=== PATIENT | male | born 1975 | race Caucasian/White ===

== ENCOUNTER → 2020-04-10 17:06 | Outpatient (CLI) | payer MEDICARE, SELFPAY ==
[2020-04-10 18:28] LABS: T4 (Thyroxine) 11.5 ug/dl (5.53-11.0)
[2020-04-10 18:42] LABS: Thyroid Stimulating Hormone 3.49 uIU/mL (0.465-4.68)
== END ==
PROVIDERS: Visit Provider Family Medicine
DX: C73 Malignant neoplasm of thyroid gland (principal)
CPT/HCPCS: 84436; 84443

== ENCOUNTER → 2020-04-26 14:28 | Outpatient (CLI) | payer MEDICARE, SELFPAY ==
--- NOTE | 2020-04-26 14:28 | US_ITS ---
PROCEDURE: US THYROID CLINICAL INDICATION: possible thyroid cance r The the COMPARISON: No exams were available for comparison FINDINGS: Right lobe: 4.2 x 1.9 x 2.4 cm. There is heterogeneous echogenicity. A 5 x 2 mm hypoechoic nodules present in the upper pole peripherally Left lobe: 4.5 x 1.4 x 1.9 cm with heterogeneous echogenicity. There is a spongiform appearing nodule in the mid polar region at 8 x 3 mm. Isthmus: Mildly thickened at 4 mm Additional findings: IMPRESSION: Enlarged thyroid gland with small bilateral nodules which have a low level of suspicion. Dictated b Josue Markham MD 04/26/2020 16:06 Josue Markham MD in [place] 04/26/2020 16:06
== END ==
LOC: RAD 14:28
PROVIDERS: PCP Family Medicine; Visit Provider Family Medicine
DX: E04.9 Nontoxic goiter, unspecified (principal)
CPT/HCPCS: 76536

== ENCOUNTER → 2021-05-23 16:52 | Outpatient (CLI) | payer MEDICARE, SELFPAY ==
[2021-05-23 18:27] LABS: Chol/HDL Ratio 4.8 (1-3.5); Cholesterol 173 mg/dl (140-200); HDL Cholesterol 36 mg/dl (40-60); Triglycerides 212 mg/dl (30-150); VLDL Cholesterol 42 mg/dL (0-40)
[2021-05-23 18:38] LABS: Direct LDL Cholesterol 109.06 mg/dL (100-129)
[2021-05-23 19:01] LABS: Thyroid Stimulating Hormone 3.94 uIU/mL (0.465-4.68)
== END ==
LOC: LAB.DROPOF 16:53
PROVIDERS: Visit Provider Family Medicine
DX: I10 Essential (primary) hypertension (principal); Z79.899 Other long term (current) drug therapy
CPT/HCPCS: 80061; 84443

== ENCOUNTER → 2022-05-07 20:41 | Outpatient (CLI) | payer MEDICARE, SELFPAY | PROVIDERS: PCP Family Medicine; Visit Provider Emergency Medicine | DX: U07.1 COVID-19 (principal) | CPT/HCPCS: C9803; U0003; U0005 ==

== ENCOUNTER → 2022-12-15 13:10 | Outpatient (CLI) | payer OTHER, SELFPAY ==
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
== END ==
PROVIDERS: PCP Family Medicine; Referring Provider Family Medicine; Visit Provider Family Medicine
DX: R60.9 Edema, unspecified (principal)
CPT/HCPCS: 93971

== ENCOUNTER → 2022-12-22 16:56 | Outpatient (CLI) | payer OTHER, SELFPAY ==
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
== END ==
PROVIDERS: PCP Family Medicine; Visit Provider Family Medicine
DX: M54.50 Low back pain, unspecified (principal); M54.16 Radiculopathy, lumbar region
CPT/HCPCS: 72148; 76376

== ENCOUNTER → 2023-03-18 14:09 | Outpatient (POV) | payer MEDICARE, SELFPAY ==
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
[2023-03-18 14:42] VITALS: BP 194/97; PULSE 102; RESP 20; O2SAT 97; BMI 34.4
== END | disposition home or self-care (01) ==
PROVIDERS: Visit Provider Nurse Practitioner Family
DX: M51.16 Intervertebral disc disorders with radiculopathy, lumbar region; M79.604 Pain in right leg; G89.29 Other chronic pain
CPT/HCPCS: 99202; G0463

== ENCOUNTER → 2023-04-16 13:37 | Outpatient (POV) | payer MEDICARE, SELFPAY ==
[2023-04-16 13:45] VITALS: BP 150/96; PULSE 85; RESP 20; BMI 33.2
--- NOTE | 2023-04-16 13:53 | A.OFFVIS_ITS ---
[facility] Pain Management SOAP Note Subjective:: Patient is a pleasant 47-year-old male who presents today for follow-up. We are currently treating the patient for degenerative disc disease of lumbar spine with lumbar radiculopathy symptoms, right leg pain, chronic back pain. Today he rates his pain a 5 out of 10. Patient denies any new trauma or injury. He denies any change in location or type of pain he experiences. From our last visit he was prescribed methocarbamol 750 mg 3 times a day and compounding cream. He does state that he has noticed improvement with this. He states that the muscle relaxer does seem more effective than the Flexeril and that the compounding cream does do better than the Biofreeze. He is requesting refills of his muscle relaxer. At our last visit we did also discuss the possibility of a right transforaminal epidural steroid injection or possibly an intrathecal pain pump trial in the future however he states he still is wanting to hold off with anything to do with needles. Patient is currently managed with [place] 7.5 mg 4 times a day, naproxen 500 mg 3 times a day and alprazolam [address] Clark's office. Patient denies any side effects from this medication. His Lasha is [id number]. Its been reviewed and appropriate. Review of Systems: General: No recent weight changes, no fever, no sleep disturbances Respiratory: No cough, no shortness of air, no recurring pulmonary infections Cardiovascular/peripheral vascular: No chest pain, no palpitations, no edema, no shortness of breath Gastrointestinal: No new onset incontinence, normal bowel movements reported Genitourinary: No new onset incontinence Musculoskeletal: Low back pain, right leg pain Psychiatric: [Normal mood/affect] Neurological: [Denies weakness in extremities], [denies balance issues] Objective:: Physical Exam: General: Alert and oriented x3, no acute distress, pleasant and cooperative Lungs: Respirations even and unlabored, symmetrical chest expansion Eyes: PERRL Musculoskeletal: Flexion and extension of lumbar [spine] somewhat guarded secondary to pain, [antalgic gait noted] Neurological: Speech clear, no gross sensory deficit Assessment:: Degenerative disc disease of lumbar spine with lumbar radiculopathy symptoms, right leg pain, chronic back pain Plan:: I will refill the patient's methocarbamol 750 mg 3 times a day and provide a 3- month supply of this medication. Patient will return to clinic in 3 months for reevaluation of symptoms and plan of care. [facility] Disclaimer: The information contained in this section may have been updated after the patient was seen, as this information can be updated by other users. Medical History (Updated 03/18/23 @ 15:09 by Rosey Cortez APRN) Anxiety Depression HTN (hypertension) Hypothyroidism Social History (Updated 03/18/23 @ 14:45 by Brittany Wan RN) Smoking Status: Never smoker alcohol intake: never substance use type: denies use current occupational status: other Travel in the last 8 weeks: None housing: house
== END | disposition home or self-care (01) ==
PROVIDERS: PCP Family Medicine; Visit Provider Nurse Practitioner Family
DX: M51.16 Intervertebral disc disorders with radiculopathy, lumbar region (principal); M79.604 Pain in right leg; M54.50 Low back pain, unspecified; G89.29 Other chronic pain
CPT/HCPCS: 99212; G0463

== ENCOUNTER → 2023-08-18 17:17 | Outpatient (CLI) | payer MEDICARE, SELFPAY ==
--- NOTE | 2023-08-18 17:23 | XR_ITS ---
PROCEDURE INFORMATION: Exam: XR Chest Exam date and time: 08/18/2023 5:16 PM Age: 48 years old Clinical indication: Cough and shortness of breath and other: Chest pain; Additional info: Dyspnea TECHNIQUE: Imaging protocol: Radiologic exam of the chest. Views: 2 views. COMPARISON: No relevant prior studies available. FINDINGS: Lungs: Lung volumes are mildly diminished. The lungs appear clear. No focal areas of consolidation. Pleural spaces: No pleural effusions. Negative for pneumothorax. Heart/Mediastinum: Cardiac silhouette and pulmonary vasculature are within range of normal. Bones/joints: There is no evidence of acute fracture. There is a minor convex right thoracic scoliosis. IMPRESSION: Negative for an acute cardiopulmonary abnormality.
== END ==
PROVIDERS: PCP Family Medicine; Visit Provider Family Medicine
DX: R06.00 Dyspnea, unspecified (principal)
CPT/HCPCS: 71046

== ENCOUNTER 2023-08-18 17:34 | Emergency (ER) | payer MEDICARE, SELFPAY ==
[2023-08-18 17:34] VITALS: BMI 35.4
[2023-08-18 18:00] VITALS: BP 153/91; PULSE 85; RESP 18; TEMP 36.7; O2SAT 97; BMI 35.4
[2023-08-18] MEDS: IPRATROPIUM/ALBUTEROL 3 ML NEB IH (18:03)
--- NOTE | 2023-08-18 18:05 | ED_ITS ---
Discharge Plan Disposition Patient Disposition: Home, Self-Care Condition: Good Prescriptions Prescriptions: New albuterol sulfate [Ventolin HFA] 90 mcg/actuation HFA aerosol inhaler 2 puff inhalation Q6H PRN (Reason: shortness of breath or wheezing) Qty: 6.7 0RF No Action albuterol sulfate 90 mcg/actuation HFA aerosol inhaler 2 puff inhalation QID PRN (Reason: shortness of breath or wheezing) Qty: 8.5 10RF prednisone 20 mg tablet See Rx Instructions .ROUTE .COMPLEX Qty: 18 0RF Rx Instructions: bid for 6 days, qd x 6 days; levofloxacin 750 mg tablet 750 mg PO DAILY 10 Days Qty: 10 0RF alprazolam 1 mg tablet 0.5 mg PO BID Qty: 60 3RF zolpidem [Ambien CR] 12.5 mg tablet,ext release multiphase 12.5 mg PO HS PRN (Reason: sleep) Qty: 30 5RF Rx Instructions: dose change methocarbamol 750 mg tablet 750 mg PO TID Qty: 90 2RF trazodone 150 mg tablet 150 mg PO HS Qty: 90 3RF hydrocodone-acetaminophen 7.5-325 mg tablet 1 tab PO Q6H PRN (Reason: pain) Qty: 120 0RF escitalopram oxalate 20 mg tablet PO DAILY fluticasone propionate 50 mcg/actuation spray,suspension intranasal levothyroxine 75 mcg tablet 75 mcg PO DAILY Qty: 90 0RF lisinopril 20 mg tablet 20 mg PO DAILY Qty: 90 3RF Trintellix 20 mg tablet 20 mg PO DAILY Qty: 30 10RF Referrals Follow up/Referrals: Caio Clark MD [Primary Care Provider] - See instructions Activity Restrictions/Add. Instructions Additional Instructions/Restrictions: Drink plenty of fluids. Take tylenol or ibuprofen for pain or fever. Take the medications that you were prescribed by your primary care physician today as directed. Use the inhaler as directed. Follow up with your regular doctor. GO TO THE ER FOR ANY WORSENING SYMPTOMS Clinical Impressions Clinical Impression: Acute bronchitis Stand Alone Forms Stand Alone Forms: Work/School Release Instructions Patient Instructions: Acute Bronchitis, DI for Acute Bronchitis Discharge ED Provider: Kaleb Farr [facility] General Stated complaint: diff breathing, HBP Time Seen by Provider: 08/18/23 18:04 History of Present Illness Provider Complaint: he states that he has had chest congestion and a cough for the past 2 to 3 days. He saw his pcp today and was prescribed antibiotics and steroids. He has not started those medications yet. He came in here today to see about getting a breathing treatment because he is having worsening shortness of breath and wheezing. He had a cxr done that was ordered by his pcp before coming here today. Related Data Home Medications Medication Instructions Recorded Confirmed escitalopram oxalate 20 mg tablet mg PO DAILY 07/30/23 08/17/23 fluticasone propionate 50 intranasal 07/30/23 08/17/23 mcg/actuation nasal spray,suspension Previous Rx's Medication Instructions Recorded levothyroxine 75 mcg tablet 75 mcg PO DAILY THYROID #90 tabs 06/19/23 lisinopril 20 mg tablet 20 mg PO DAILY BLOOD PRESSURE #90 06/19/23 tabs vortioxetine 20 mg tablet 20 mg PO DAILY MOOD #30 tabs 06/19/23 (Trintellix) hydrocodone 7.5 mg-acetaminophen 1 tab PO Q6H PRN pain #120 tabs 07/20/23 325 mg tablet albuterol sulfate 90 mcg/actuation 2 puff inhalation QID PRN 08/17/23 aerosol inhaler shortness of breath or wheezing #8.5 grams alprazolam 1 mg tablet 0.5 mg PO BID NERVES #60 tabs 08/17/23 levofloxacin 750 mg tablet 750 mg PO DAILY 10 days #10 tabs 08/17/23 methocarbamol 750 mg tablet 750 mg PO TID #90 tabs 08/17/23 prednisone 20 mg tablet See Rx Instructions .Route 08/17/23 .COMPLEX #18 tabs trazodone 150 mg tablet 150 mg PO HS #90 tabs 08/17/23 zolpidem 12.5 mg tablet,extended 12.5 mg PO HS PRN sleep #30 tabs 08/17/23 release,multiphase (Ambien CR) albuterol sulfate 90 mcg/actuation 2 puff inhalation Q6H PRN 08/18/23 aerosol inhaler (Ventolin HFA) shortness of breath or wheezing #6.7 grams Allergies Allergy/AdvReac Type Severity Reaction Status Date / Time No Known Allergies Allergy Verified 08/18/23 18:15 PFSH PFS Disclaimer: The information contained in this section may have been updated after the patient was seen, as this information can be updated by other users. Medical History (Updated 08/18/23 @ 18:36 by Kaleb Farr APRN) Anxiety Depression Dyspnea Frequent headaches Hearing loss HTN (hypertension) Perforated tympanic membrane Tinnitus Social History Smoking Status: Never smoker alcohol intake: never substance use type: denies use current occupational status: other Travel in the last 8 weeks: None housing: house ROS Obtained: Yes All systems reviewed & no additional complaints except as documented Constitutional Constitutional: Reports poor appetite Eyes Eyes: Reports system reviewed and no additional complaints, except as documented ENT Ears, Nose, Mouth, and Throat: Reports as per HPI Cardiovascular Cardiovascular: Reports system reviewed and no additional complaints, except as documented and Denies chest pain Respiratory Respiratory: Denies shortness of breath, Reports chest congestion, Reports cough, Denies stridor and Reports wheezing Gastrointestinal Gastrointestingal: Reports system reviewed and no additional complaints, except as documented; Denies abdominal pain, diarrhea or vomiting Musculoskeletal Musculoskeletal: Reports system reviewed and no additional complaints, except as documented and Denies arthralgias Integumentary/Breasts Skin/Breast: Reports system reviewed and no additional complaints, except as documented and Denies rash Neurologic Neurologic: Denies paresthesias Allergic/Immunologic Allergic/Immunologic: Reports wheezing Physical Exam General General appearance: alert and in no apparent distress Head Head exam: atraumatic, normocephalic and normal inspection Eye Eye exam: Present normal appearance, PERRL and EOMI ENT ENT exam: Present normal exam, normal oropharynx, mucous membranes moist, TM's normal bilaterally and normal external ear exam Neck Neck exam: Present normal inspection, full ROM and trachea midline; Absent meningismus or lymphadenopathy Chest Chest inspection: Present normal inspection and symmetric chest wall rise; Absent tenderness Respiratory Respiratory exam: Present normal lung sounds bilaterally; Absent respiratory distress Cardiovascular Cardiovascular exam: Present regular rate and normal rhythm; Absent JVD Abdominal Exam Abdominal exam: Present soft and normal bowel sounds; Absent distention, tenderness or guarding Extremities Exam Extremities exam: Present normal inspection, full ROM and normal capillary refill; Absent calf tenderness Back Exam Back exam: Present normal inspection; Absent tenderness Neurological Exam Neurological exam: Present alert and oriented X3 Psychiatric Psychiatric exam: Present normal affect and normal mood Skin Skin exam: Present warm, dry, intact and normal color Lymphatic Lymphatic Findings: no adenopathy Medical Decision Making Medical Records Medical records reviewed: No I reviewed the patient's medical records. Lasha Inquiry Pt receiving controlled substance: No Orders (Tests/Meds): ED MEDICATIONS Generic Name Dose Route Start Last Admin Trade Name Freq PRN Reason Stop Dose Admin Albuterol/Ipratropium 3 ml 08/18/23 18:02 08/18/23 18:03 Ipratropium/Albuterol 3 Ml Neb 08/18/23 18:03 3 ml ONCE ONE Administration
[2023-08-18 19:18] VITALS: BP 153/91; PULSE 85; RESP 18; TEMP 36.7; O2SAT 97
--- NOTE | 2023-08-18 19:19 | PC.NURSE ---
Provider wanted me to bring pt back earlier due to severity of condition.
== END 2023-08-18 19:18 | disposition home or self-care (01) ==
PROVIDERS: Emergency Provider Nurse Practitioner Family; PCP Family Medicine
DX: R06.02 Shortness of breath (principal); J20.9 Acute bronchitis, unspecified; R09.89 Other specified symptoms and signs involving the circulatory and respiratory systems; R05.9 Cough, unspecified; I10 Essential (primary) hypertension
CPT/HCPCS: 71046; 87635; 99204; 99212; G0463

== ENCOUNTER 2023-10-16 12:24 | Outpatient (CLI) | payer MEDICARE, SELFPAY ==
--- NOTE | 2023-10-16 | CA_ITS ---
APPROVED REPORT Exam: Exercise Treadmill Technologist: Miroslava Beckman, Ht: 6 ft 1 in Wt: 273 lbs BSA: 2.46 m2 HR: 77 bpm BP: 142/94 mmHg Rhythm: NSR, cannot rule out old inferior MT Medical History Medical History: HTN Medications: Lisinopril,,,,, Alprazolam,,,,, Levothyroxine,,,,, Trazadone,,,,, Albuterol,,,,, Ambien,,,,, Methocarbamol,,,,, Escitalopram Oxalate,,,,, TriNTELLIX,,,,, Allergies: No known drug allergies Cardiac Risk Factors: HTN Stress Test Details Test: David HR Resting HR: 87 bpm Max Heart Rate (APMHR): 171 bpm Max HR Achieved: 150 bpm Target HR (85% APMHR): 145 bpm % of APMHR: 88 Recovery HR: 104 bpm HR response to stress: Normal HR response to stress BP Resting BP: 142.0/94 mmHg Max BP: 174/84 mmHg Recovery BP: 152.0/84.0 mmHg BP response to stress: Normal blood pressure response to stress. ECG Resting ECG: NSR, cannot rule out old inferior MT Stress EC.[address] depression Arrhythmia: None Recovery ECG: Return to baseline within 3 minutes of recovery Recovery Arrhythmia: None Clinical Exercise duration: 08:46 min Highest Stage Achieved: Exercise capacity: 10.1 METs Overall Exercise Capacity for Age: Average Stress ECG Conclusion The patient was able to exercise for a total of 8 minutes, 46 seconds. He achieved a total of 10.1 METS. He has average exercise capacity compared to age and sex matched peers. He has normal HR and BP response to exercise. MAX HR: 150 % OF PM: 88% MAX B/P: 174/84 METS: 10.1 Test stopped due to: Dyspnea, fatigue. No symptoms of chest pain. ST changes: 0.[address] depression at peak stress Conclusion: Average exercise capacity. No ECG evidence of ischemia at peak stress. Myoview images are reported separately. Test Summary REST . . . . . . . Standing REST . . . . . . . Sitting REST 04:43 0.0 0.0 87 . 142/ 94 . . Stage 1 01:00 10.0 1.7 102 . . . . Stage 1 02:00 10.0 1.7 105 . . . . Stage 1 03:00 10.0 1.7 108 . 160/ 78 . . Stage 2 01:00 12.0 2.5 120 . . . . Stage 2 02:00 12.0 2.5 126 . . . . Stage 2 03:00 12.0 2.5 128 . 174/ 84 . . Stage 3 01:00 14.0 3.4 138 . . . . Stage 3 02:00 14.0 3.4 144 . . . . Stage 3 02:46 14.0 3.4 149 . . . Stop exercise at 08:46 RECOVERY 01:00 0.0 0.0 133 . . . . RECOVERY 02:00 0.0 0.0 120 . . . . RECOVERY 03:00 0.0 0.0 109 . 170/ 83 . . RECOVERY 04:00 0.0 0.0 109 . 170/ 83 . . RECOVERY 05:00 0.0 0.0 108 . 152/ 84 . . RECOVERY 05:20 0.0 0.0 107 . 152/ 84 . . Electronically signed by : Hue Herrera MD 10/19/2023 11:40:05
--- NOTE | 2023-10-16 12:25 | NM_ITS ---
APPROVED REPORT Exam: Nuclear Stress Test Indication: chest pain..soa..fatigue Patient Location: Outpatient Stress Tech: Miroslava Beckman NE Tech:Corinna Rubalcava DELON RT(R)(N) Ht: 6 ft 0 in Wt: 265 lbs HR: 87 bpm BP: 142/94 mmHg BSA: 2.40 m2 TID: 1.12 History: chest pain..soa..fatigue Procedure: Patient exercised on David protocol 8:46 minutes and sec, resting heart rate 87 bpm, resting blood pressure 142/94 mmHg, with exercise maximum heart rate achived was 150 bpm which is 88 % of the maximum predicted heart rate and blood pressure was 174/84 mmHg. Test was stopped due to soa..fatigue. Patient denied any complaint of chest pain. Patient has Average exercise capacity, achieved 10.1 METs of workload on treadmill, the blood pressure response to exercise was Normal. Cardiac Stress and Resting SPECT Images: Cardiac Stress and Resting SPECT images were obtained using technetium 99m Myoview 32.8 mCi stress and 10.70 mCi at rest. Raw images demonstrate significant diaphragmatic overlap with the inferior cardiac border. This may affect the diagnostic interpretation of the study findings. Resting and stress imaging in supine positions demonstrate medium sized, moderate fixed perfusion defect in the basal to mid inferior LV wall. This is no longer visualized with prone stress imaging. Findings are suggestive of diaphragmatic attenuation. Gated imaging demonstrates normal global and regional LV systolic function. LVEF is calculated at 59%. Conclusion: Diaphragmatic attenuation is present. No definite evidence of fixed or reversible perfusion defects. Gated imaging demonstrates normal global and regional LV systolic function. LVEF is calculated at 59%. Electronically signed by : Hue Herrera MD 10/19/2023 11:41:53
[2023-10-16] MEDS: ISOTOPE MYOVIEW (PER STUDY) 1 DOSE IV (14:30)
[2023-10-16] MEDS: SODIUM CHLORIDE 0.9% 10ML SYR (RAD ONLY) 10 ML IV ×2 (14:30)
== END 2023-10-16 23:59 ==
LOC: RAD 12:25
PROVIDERS: PCP Family Medicine; Visit Provider Family Medicine
DX: R07.9 Chest pain, unspecified (principal); R06.02 Shortness of breath; R53.83 Other fatigue
CPT/HCPCS: 78452; 93017; 93018; A9502

== ENCOUNTER 2024-01-01 07:50 | Outpatient (CLI) | payer MEDICARE, SELFPAY ==
[2024-01-01 18:47] LABS: Basophils # 0.1 K/mm3 (0-0.2); Basophils % 1.2 % (0.1-2.0); Eosinophils # 0.4 K/mm3 (0.0-0.4); Eosinophils % 3.6 % (0.1-12.0); Hematocrit 46.5 % (42.0-52.0); Hemoglobin 15.4 g/dL (14.1-18.0); Lymphocytes # 3.2 K/mm3 (0.7-4.5); Lymphocytes % 32.4 % (10-50); Mean Corpuscular HGB Conc 33.1 g/dL (31.8-35.4); Mean Corpuscular Hemoglobin 32.5 pg (27.0-31.2); Mean Corpuscular Volume 98.2 fl (80-94); Mean Platelet Volume 8.6 fl (7.4-10.4); Monocytes # 0.6 K/mm3 (0.1-1.0); Monocytes % 6.3 % (1.7-9.3); Neutrophils # 5.6 K/mm3 (1.8-7.8); Neutrophils % 56.4 % (37.0-80.0); Platelet Count 345 K/mm3 (142-424); Red Blood Count 4.74 M/mm3 (4.60-6.20); Red Cell Distribution Width 13.5 % (11.5-17.5); White Blood Count 9.8 K/mm3 (4.8-10.8)
[2024-01-01 18:58] LABS: Alanine Aminotransferase 61 U/L (12-78); Albumin Level 4.7 g/dl (3.5-5.0); Albumin/Globulin Ratio 1.7 (1.1-1.8); Alkaline Phosphatase 69 U/L (38-126); Anion Gap 13.4 mEq/L (5-15); Aspartate Amino Transferase 77 U/L (17-59); Bilirubin,Total 0.5 mg/dl (0.2-1.3); Blood Urea Nitrogen 16 mg/dl (9-20); Calcium 9.3 mg/dl (8.4-10.2); Carbon Dioxide 28 mmol/L (22.0-30.0); Chloride 101 mmol/L (98-107); Chol/HDL Ratio 5.8 (1-3.5); Cholesterol 210 mg/dl (140-200); Estimated Glomerular Filt Rate 120 ml/min (>60); GFR (African American) 145 ML/MIN (>60); Globulin 2.7 g/dL (1.3-3.2); Glucose 134 mg/dl (74-100); HDL Cholesterol 36 mg/dl (40-60); Potassium 4.4 mmoL/L (3.5-5.1); Sodium 138 mmol/L (136-145); Total Protein,Serum 7.4 g/dl (6.3-8.2); Triglycerides 264 mg/dl (30-150); VLDL Cholesterol 53 mg/dL (0-40)
[2024-01-01 19:09] LABS: Direct LDL Cholesterol 125.15 mg/dL (100-129)
[2024-01-01 19:14] LABS: 25-OH Vitamin D, Total 30.5 ng/mL (30-100)
[2024-01-01 19:29] LABS: Thyroid Stimulating Hormone 3.75 uIU/mL (0.465-4.68)
[2024-01-01 19:48] LABS: Vitamin B12 541 pg/mL (239-931)
[2024-01-01 20:04] LABS: Hemoglobin A1C 5.3 % (4.0-6.0)
[2024-01-01 20:05] LABS: Iron 76 ug/dL (49-181)
[2024-01-01 20:09] LABS: Total Iron Binding Capacity 345 ug/dL (261-462)
[2024-01-01 21:56] LABS: Folate 7.01 ng/mL
[2024-01-09 17:09] LABS: Testosterone, Total, LC/MS 141 ng/dL (.)
== END 2024-01-01 23:59 | disposition home or self-care (01) ==
LOC: LAB.DROPOF 01-03 07:51
PROVIDERS: PCP Nurse Practitioner Family; Visit Provider Nurse Practitioner Family
DX: E07.9 Disorder of thyroid, unspecified (principal); R53.83 Other fatigue; E55.9 Vitamin D deficiency, unspecified; G89.21 Chronic pain due to trauma; E11.9 Type 2 diabetes mellitus without complications; E78.5 Hyperlipidemia, unspecified; Z12.5 Encounter for screening for malignant neoplasm of prostate; R74.01 Elevation of levels of liver transaminase levels
CPT/HCPCS: 80053; 80061; 82306; 82607; 82746; 83036; 83540; 83550; 84403; 84443; 85025; G0103

== ENCOUNTER 2024-04-05 08:33 | Day surgery (SDC) | payer MEDICARE, SELFPAY ==
[2024-04-01 13:20] VITALS: BMI 35.1
[2024-04-05] VITALS (7 sets, daily range): BP systolic 91–153; BP diastolic 70–92; PULSE 79–95; RESP 12–18; TEMP 36.6; O2SAT 90–98; BMI 36.1
--- NOTE | 2024-04-05 08:57 | EXP.ANES.CKL ---
[facility] Disclaimer: The information contained in this section may have been updated after the patient was seen, as this information can be updated by other users. Medical History SNHL (sensorineural hearing loss) mild high frequency SNHL > 2KHZ bilaterally Dyspnea Perforated tympanic membrane Frequent headaches Tinnitus Hearing loss Anxiety HTN (hypertension) Depression Surgical History No history of previous surgery Family History Other Cancer Coronary artery disease Thyroid disorder Social History (Updated 04/05/24 @ 08:44 by Jania Jo RN) Smoking Status: Never smoker alcohol intake: never substance use type: denies use current occupational status: other Travel in the last 8 weeks: None housing: house [facility] Anesthesia Checklist Patient Identification Patient Identification: Arm Band and Verbal (Name & ) Structural Data Admitted From: Home Planned Operative Procedure/s: Colonoscopy Consent for Planned Operative Procedure(s) Verified: Yes Verified Documents: Surgical Consent and History and Physical Chart Verification Results Verified: CBC, BMP and Chest Xray Additional verifications Patient : No Anesthesia Reactions: No Cardiovascular Assessment Heart Sounds: S1 & S2 Pulse Rhythm: Irregular Peripheral Edema: No Airway Assessment Mallampati Score:: Class II C-Spine Mobility Assessed: Yes (FROM) TMJ Mobility Assessed: Yes Dentition: Good Dentition (Nothing loose per pt.) Neurological Assessment Level of Consciousness: Awake, Alert, Appropriate and Follows Commands Hx Seizures: No Numbness or tingling in extremities: No Anesthesia Plan Anesthesia Risk discussed: Yes ASA Class: III Anesthesia Type: MAC
--- NOTE | 2024-04-05 08:57 | [facility]H.SCOPE ---
Procedure: Date: 04/05/24 Patient Date of :: 1975 Procedure Performed:: Colonoscopy with polypectomy Indications:: Screening Performing Provider:: Kahlil Stephens MD Referring Provider:: . Sedation:: Monitored anesthesia care Procedure:: After informed consent was obtained the patient was taken to the endoscopy suite. Sedation ensued after the patient was transferred to the left lateral decubitus position. Pulse, blood pressure, and oxygen saturation were monitored throughout the procedure. Digital rectal exam revealed no significant abnormality. The colonoscope was placed in position. The entire colon was evaluated. The colonoscope was carefully removed and the patient was transferred to recovery in stable condition. Please see findings and specimens below for detail. Findings:: Bowel preparation moderate to poor Mild hemorrhoidal cushions Significant spasticity/lack of relaxation Moderate tortuosity Polyps (see specimens) Specimens:: Polyp at 40 cm (cold snare) Polyp at 18 cm (cold snare) Recommendations:: Timing of repeat colonoscopy is pending pathology will likely be between 1-2 years with extended/alternate bowel preparation. Complications:: No immediate Estimated blood obtained (mL): 1 Colonoscopy Component Colonoscopy Component Was a colonoscopy performed during today's procedure?: Yes Recommended follow up colonoscopy of at least 10 years?: No If no, follow up colonoscopy recommended in ___ years?: (See above) Reason for not recommending >/= 10 yr follow-up interval?: (See above)
[2024-04-05] MEDS: LACTATED RINGERS 1000ML 1,000 ML 25 ML IV (09:06)
[2024-04-05 10:55] LABS: C-Reactive Protein 2.9 mg/L (0-4)
[2024-04-05 12:32] LABS: Erythrocyte Sedimentation Rate 11 mm/hr (0-15)
[2024-05-09 14:55] LABS: Rheumatoid Factor IGA < 7 U (<7); Rheumatoid Factor IGM < 7 U (<7)
== END 2024-04-05 10:20 | disposition home or self-care (01) ==
PROVIDERS: PCP Family Medicine; Visit Provider Surgery
PROC: 0DJD8ZZ Inspection of Lower Intestinal Tract, Via Natural or Artificial Opening Endoscopic (ICD-10-PCS; CPT 45378; principal; 2024-04-05 09:30)
DX: M15.4 Erosive (osteo)arthritis (principal); Z12.11 Encounter for screening for malignant neoplasm of colon; K64.9 Unspecified hemorrhoids; K63.5 Polyp of colon
CPT/HCPCS: 45385; 85651; 86140; 86431; 88305; J2704; J7120

== ENCOUNTER 2024-04-29 16:18 | Outpatient (CLI) | payer MEDICARE, SELFPAY | END 2024-04-29 23:59 | disposition home or self-care (01) | LOC: LAB.DROPOF 04-30 09:19 | PROVIDERS: PCP Family Medicine; Visit Provider Family Medicine | DX: M54.9 Dorsalgia, unspecified (principal) | CPT/HCPCS: 87086 ==

== ENCOUNTER 2024-07-05 18:28 | Emergency (ER) | payer MEDICARE, SELFPAY ==
[2024-07-05 18:55] VITALS: BP 129/89; PULSE 87; RESP 21; TEMP 36.8; O2SAT 97; BMI 36.8
[2024-07-05 19:13] LABS: UTC Influenza A Antigen Negative (Negative); UTC Strep Screen (Rapid) Negative (Negative)
[2024-07-05 19:14] LABS: UTC Influenza B Antigen Negative (Negative)
--- NOTE | 2024-07-05 19:17 | EXP.UTC ---
Discharge Plan Disposition Patient Disposition: Home, Self-Care Condition: Good Prescriptions Prescriptions: New azithromycin [Zithromax] 250 mg tablet 250 mg PO UD DOSE PK Qty: 6 0RF Rx Instructions: Take two (2) tablets today, then one (1) tablet days #2 thru #5 benzonatate 100 mg capsule 100 mg PO TIDP PRN (Reason: Cough) Qty: 30 0RF methylprednisolone 4 mg Tablets,Dose Pack 4 mg PO DIRECTED 6 Days Qty: 21 0RF Rx Instructions: Take 1 pack as directed for 6 days No Action alprazolam 1 mg tablet 1 mg PO BID Patient Comments: TAKE 1 TABLET BY MOUTH TWICE DAILY FOR NERVES lisinopril 20 mg tablet 20 mg PO DAILY Patient Comments: TAKE 1 TABLET BY MOUTH ONCE DAILY FOR BLOOD PRESSURE hydrocodone-acetaminophen 7.5-325 mg tablet 1 tab PO Q8HP PRN (Reason: Pain) Patient Comments: TAKE 1 TABLET BY MOUTH EVERY 8 HOURS NEEDED FOR PAIN. naproxen 500 mg tablet 500 mg PO BID Patient Comments: TAKE ONE TABLET BY MOUTH TWICE DAILY amlodipine-benazepril 10-20 mg capsule 1 cap PO DAILY Patient Comments: TAKE 1 CAPSULE BY MOUTH ONCE DAILY. zolpidem 12.5 mg tablet,ext release multiphase 12.5 mg PO HS Patient Comments: TAKE 1 TABLET BY MOUTH AT BEDTIME NIGHTLY NEEDED FOR SLEEP testosterone 1.62 % (40.5 mg/2.5 gram) gel in packet 1 packet topical DAILY Patient Comments: APPLY 1 PACKET (40.5MG) OVER MAX AREA OF EACH UPPER ARM AND SHOULDER. (2 PACKETS TOTAL/DAY) Referrals Follow up/Referrals: Caio Clark MD [Primary Care Provider] - See instructions Activity Restrictions/Add. Instructions Additional Instructions/Restrictions: Drink plenty of fluids. Take tylenol or ibuprofen for pain or fever. Take the medications as directed. Follow up with your regular doctor. GO TO THE ER FOR ANY WORSENING SYMPTOMS Clinical Impressions Clinical Impression: Sinusitis, Bronchitis, Acute viral syndrome Stand Alone Forms Stand Alone Forms: Work/School Release Instructions Patient Instructions: DI for Sinusitis, DI for Viral Syndrome Print Language Print Language: Japanese Discharge ED Provider: Kaleb Farr [facility] General Stated complaint: Fever,sore throat,congestion Mode of Arrival: Ambulatory Source of Information: Patient Limitations: No Limitations Time Seen by Provider: 07/05/24 19:08 Description of Symptoms (Recalled from Triage Doc. by RN): PATIENT C/O FEVER, SORE THROAT AND COUGH X 4 DAYS HEENT Symptoms (Recalled from RN notes): Yes Resp Symptoms (Recalled from RN notes): Yes Skin Symptoms (Recalled from RN notes): No MS Symptoms (Recalled from RN notes): No Functional Status (Recalled from RN notes): WNL History of Present Illness Provider Complaint: He states that for the past 2 days he has had sinus and chest congestion. He has had fever, chills, and malaise also. Related Data Home Medications ?Medication ?Instructions ?Recorded ?Confirmed alprazolam 1 mg tablet 1 mg PO BID 07/05/24 07/05/24 amlodipine 10 mg-benazepril 20 mg 1 cap PO DAILY 07/05/24 07/05/24 capsule hydrocodone 7.5 mg-acetaminophen 1 tab PO Q8HP PRN Pain 07/05/24 07/05/24 325 mg tablet lisinopril 20 mg tablet 20 mg PO DAILY 07/05/24 07/05/24 naproxen 500 mg tablet 500 mg PO BID 07/05/24 07/05/24 testosterone 1.62 % (40.5 mg/2.5 1 packet topical DAILY 07/05/24 07/05/24 gram) transdermal gel packet zolpidem 12.5 mg tablet,extended 12.5 mg PO HS 07/05/24 07/05/24 release,multiphase Previous Rx's ?Medication ?Instructions ?Recorded azithromycin 250 mg tablet 250 mg PO UD DOSE PK #6 tabs 07/05/24 (Zithromax) benzonatate 100 mg capsule 100 mg PO TIDP PRN Cough #30 caps 07/05/24 methylprednisolone 4 mg tablets in 4 mg PO DIRECTED 6 days #21 tabs 07/05/24 a dose pack Allergies Allergy/AdvReac Type Severity Reaction Status Date / Time No Known Allergies Allergy Verified 06/27/24 15:27 Worker's Comp Is this a Worker's Comp case?: No [facility] Disclaimer: The information contained in this section may have been updated after the patient was seen, as this information can be updated by other users. Medical History SNHL (sensorineural hearing loss) mild high frequency SNHL > 2KHZ bilaterally Dyspnea Perforated tympanic membrane Frequent headaches Tinnitus Hearing loss Anxiety HTN (hypertension) Depression Surgical History History of colonoscopy No history of previous surgery Family History Other Cancer Coronary artery disease Thyroid disorder Social History Smoking Status: Never smoker alcohol intake: never substance use type: denies use current occupational status: other Travel in the last 8 weeks: None housing: house caffeine: Yes ROS Obtained: Yes All systems reviewed & no additional complaints except as documented Constitutional Constitutional: Reports chills and Reports fever(s) Eyes Eyes: Denies eye discharge ENT Ears, Nose, Mouth, and Throat: Reports as per HPI Cardiovascular Cardiovascular: Denies chest pain Respiratory Respiratory: Denies chest congestion and Reports cough Gastrointestinal Gastrointestingal: Reports nausea; Denies abdominal pain, constipation, cramping, diarrhea or vomiting Musculoskeletal Musculoskeletal: Denies arthralgias Integumentary/Breasts Skin/Breast: Denies rash Neurologic Neurologic: Denies paresthesias Physical Exam General General appearance: alert and in no apparent distress Eye Eye exam: Present normal appearance, PERRL and EOMI ENT ENT exam: Present mucous membranes moist and normal external ear exam Expanded ENT Exam External ear exam: Present normal external inspection TM/Canal exam: Bilateral TM: erythema and bulging Nose exam: Absent sinus tenderness Nasal speculum exam: Bilateral: normal Mouth exam: Present normal external inspection; Absent drooling Teeth exam: Present normal inspection Throat exam: Present tonsillar erythema and tonsillomegaly Neck Neck exam: Present normal inspection, full ROM and trachea midline; Absent tenderness, lymphadenopathy or thyromegaly Chest Chest inspection: Present normal inspection and symmetric chest wall rise; Absent tenderness or rash Respiratory Respiratory exam: Present normal lung sounds bilaterally; Absent respiratory distress, wheezes, stridor or accessory muscle use Cardiovascular Cardiovascular exam: Present regular rate, normal rhythm and normal heart sounds Abdominal Exam Abdominal exam: Present soft; Absent distention, tenderness, guarding, rebound or rigidity Extremities Exam Extremities exam: Present normal inspection, full ROM and normal capillary refill; Absent tenderness or calf tenderness Back Exam Back exam: Present normal inspection and full ROM; Absent tenderness Neurological Exam Neurological exam: Present alert and oriented X3 Psychiatric Psychiatric exam: Present normal affect and normal mood Skin Skin exam: Present warm, dry, intact and normal color Lymphatic Lymphatic Findings: no adenopathy Medical Decision Making Medical Records Medical records reviewed: No I reviewed the patient's medical records. Screening: Per USPSTF and CDC recommendations, given the prevalence of disease in our region, it is our hospital?s policy to screen for HIV and viral Hepatitis for all patients aged 18 and over and those with ongoing risk factors. Lasha Inquiry Pt receiving controlled substance: No Vital Signs: 07/05/24 18:55 Temperature 98.3 F Temperature Source Oral Pulse Rate [Right Brachial] 87 Respiratory Rate 21 Blood Pressure [Right Arm] 129/89 Blood Pressure Mean [Right Arm] 102 Blood Pressure Source [Right Arm] Automatic Cuff Blood Pressure Position [Right Arm] Sitting 02 Sat by Pulse Oximetry 97 Oxygen Delivery Method Room Air Lab Data Lab results reviewed: Yes I reviewed the patient's lab results. Lab Results 07/05/24 19:01: Influenza Type A Ag Negative, Influenza Type B Ag Negative, Strep Scn Rapid Clinic Negative Orders (Tests/Meds): ORDERS Category Date Time Status Strep Screen Confirmation Stat Micro 07/05/24 19:01 Received
[2024-07-05 19:25] VITALS: BP 129/89; PULSE 87; RESP 21; TEMP 36.8; O2SAT 97
== END 2024-07-05 19:30 | disposition home or self-care (01) ==
PROVIDERS: Emergency Provider Nurse Practitioner Family; PCP Family Medicine
DX: J01.90 Acute sinusitis, unspecified (principal); J40 Bronchitis, not specified as acute or chronic; B34.9 Viral infection, unspecified
CPT/HCPCS: 87635; 87804; 87880; 99213; G0381

== ENCOUNTER 2024-11-13 21:17 | Emergency (ER) | payer MEDICARE, SELFPAY ==
[2024-11-13 21:23] VITALS: BP 160/108; PULSE 77; RESP 20; TEMP 36.8; O2SAT 94; BMI 34.4
[2024-11-13 21:30] VITALS: BP 160/113; PULSE 103; O2SAT 99
[2024-11-13] MEDS: ONDANSETRON 4MG/2ML VIAL 4 MG IV (21:56)
[2024-11-13] MEDS: LACTATED RINGERS 1000ML 1,000 ML 999 ML IV (21:56)
[2024-11-13 22:05] LABS: Adenovirus F 40/41, stool Not Detected (NotDetected); Astrovirus Not Detected (NotDetected); Campylobacter Not Detected (NotDetected); Cryptosporidium Not Detected (NotDetected); Cyclospora Cayetanesis Not Detected (NotDetected); Entamoeba histolytica Not Detected (NotDetected); Enteroaggregative E coli Not Detected (NotDetected); Enteropathogenic E coli Not Detected (NotDetected); Enterotoxigenic E coli Not Detected (NotDetected); Giardia lamblia Not Detected (NotDetected); Norovirus Not Detected (NotDetected); Plesimonas Shigalloides, PCR Not Detected (NotDetected); Rotavirus A Not Detected (NotDetected); Salmonella, PCR Not Detected (NotDetected); Sapovirus Not Detected (NotDetected); Shiga-like toxin E coli Not Detected (NotDetected); Shigella Enterovasive E coli Not Detected (NotDetected); Vibrio Cholerae Not Detected (NotDetected); Vibrio, PCR Not Detected (NotDetected); Yersinia Entercolitica, PCR Not Detected (NotDetected)
[2024-11-13 22:06] LABS: Albumin Level 5.6 g/dl (3.5-5.0); Chloride 99 mmol/L (98-107); Potassium 3.8 mmoL/L (3.5-5.1); Sodium 140 mmol/L (136-145)
[2024-11-13 22:08] LABS: Blood Urea Nitrogen 12 mg/dl (9-20); Creatinine Clearance Estimated 151 mL/min (50-200); Estimated Glomerular Filt Rate 89 ml/min (>60); GFR (African American) 108 ML/MIN (>60)
[2024-11-13 22:09] LABS: Alanine Aminotransferase 125 U/L (12-78); Albumin/Globulin Ratio 1.3 (1.1-1.8); Alkaline Phosphatase 78 U/L (38-126); Anion Gap 17.8 mEq/L (5-15); Aspartate Amino Transferase 99 U/L (17-59); Bilirubin,Total 1.4 mg/dl (0.2-1.3); Calcium 9.4 mg/dl (8.4-10.2); Carbon Dioxide 27 mmol/L (22.0-30.0); Globulin 4.2 g/dL (1.3-3.2); Glucose 102 mg/dl (74-100); Total Protein,Serum 9.8 g/dl (6.3-8.2)
[2024-11-13 22:10] LABS: Basophils # 0.1 K/mm3 (0-0.2); Basophils % 0.4 % (0.1-2.0); Eosinophils # 0.4 K/mm3 (0.0-0.4); Eosinophils % 2.7 % (0.1-12.0); Hematocrit 51.4 % (42.0-52.0); Lymphocytes # 3.1 K/mm3 (0.7-4.5); Lymphocytes % 19.3 % (10-50); Mean Corpuscular HGB Conc 35.2 g/dL (31.8-35.4); Mean Corpuscular Hemoglobin 31.3 pg (27.0-31.2); Mean Corpuscular Volume 88.9 fl (80-94); Mean Platelet Volume 9.1 fl (7.4-10.4); Monocytes # 1.2 K/mm3 (0.1-1.0); Monocytes % 7.2 % (1.7-9.3); Neutrophils # 11.3 K/mm3 (1.8-7.8); Neutrophils % 69.8 % (37.0-80.0); Platelet Count 392 K/mm3 (142-424); Red Blood Count 5.78 M/mm3 (4.60-6.20); White Blood Count 16.2 K/mm3 (4.8-10.8)
[2024-11-13 22:13] LABS: MANUAL DIFFERENTIAL MANUAL DIFFERENTIAL (MANUAL DIFF)
--- NOTE | 2024-11-13 22:15 | ED_ITS ---
Discharge Plan Disposition Patient Disposition: Home, Self-Care Condition: Good Prescriptions Prescriptions: New ondansetron 4 mg tablet,disintegrating 4 mg PO Q6H PRN (Reason: nausea and vomiting) Qty: 10 0RF No Action alprazolam 1 mg tablet 1 mg PO .qd PRN (Reason: anxiety) Qty: 30 3RF Rx Instructions: dose reduction naproxen 500 mg tablet 500 mg PO BID Qty: 60 2RF Patient Comments: TAKE ONE TABLET BY MOUTH TWICE DAILY testosterone 1.62 % (40.5 mg/2.5 gram) gel in packet 1 packet topical DAILY Qty: 75 5RF eszopiclone [Lunesta] 3 mg tablet 3 mg PO HS Qty: 30 5RF Ozempic 1 mg/dose (4 mg/3 mL) pen injector 1 mg SQ WEEKLY Qty: 3 1RF hydrocodone-acetaminophen 7.5-325 mg tablet 1 tab PO Q6H PRN (Reason: Pain) Qty: 120 0RF testosterone [AndroGel] 20.25 mg/1.25 gram (1.62 %) gel in metered-dose pump 2 pump topical DAILY Qty: 75 5RF Rx Instructions: apply 1 pump amount over max area of EACH upper arm and shoulder amlodipine-benazepril 10-20 mg capsule 1 cap PO DAILY Patient Comments: TAKE 1 CAPSULE BY MOUTH ONCE DAILY. Referrals Follow up/Referrals: Caio Clark MD [Primary Care Provider] - See instructions Activity Restrictions/Add. Instructions Additional Instructions/Restrictions: Call your family doctor to establish care for this visit to the emergency department and schedule follow-up within 48 hours to ensure improvement. If you have any worsening of your condition or any other concerning signs or symptoms, return to the emergency department or your primary care doctor for further evaluation. Clinical Impressions Clinical Impression: Gastroenteritis Instructions Patient Instructions: DI for Diarrhea and Traveler's Diarrhea -- Adult, DI for Diarrhea and Traveler's Diarrhea -- Child, DI for Nausea -- Adult, DI for Nausea -- Child Print Language Print Language: French Discharge ED Provider: Daren Savage General Adult HPI General Chief complaint: Nausea/Vomiting/Diarrhea Stated complaint: vomiting, diarrhea Time Seen by Provider: 11/13/24 21:20 Mode of Arrival: Ambulatory Source of Information: Patient Limitations: No Limitations Description of Symptoms (Recalled from ER Triage Doc. by RN): Pt states he is having liquid frequent diarrhea and vomiting x 2 days History of Present Illness HPI narrative: Please note that above description of symptoms, in this electronic medical record under categorization of recalled from ER triage doctor by RN are reflective of an initial nursing assessment, however, is not reflective of my full history and physical exam that was personally taken and clarified. Consequentially, this preceding description of symptoms, which may include the patient's categorized chief complaint in the EMR, do not reflect my personal clinical impression, and the ultimate description of history of present illness and patient stated complaints should be deferred to this section of the note. Unless stated otherwise or congruent with this section of the note, additional signs, symptoms, or incongruence should be interpreted as inaccurate with my clinical impression. Related Data Home Medications ?Medication ?Instructions ?Recorded ?Confirmed amlodipine 10 mg-benazepril 20 mg 1 cap PO DAILY 07/05/24 11/13/24 capsule Previous Rx's ?Medication ?Instructions ?Recorded alprazolam 1 mg tablet 1 mg PO .qd PRN anxiety #30 tabs 09/28/24 naproxen 500 mg tablet 500 mg PO BID #60 tabs 09/28/24 testosterone 1.62 % (40.5 mg/2.5 1 packet topical DAILY #75 grams 09/28/24 gram) transdermal gel packet testosterone (AndroGel) 2 pump topical DAILY #75 grams 09/29/24 eszopiclone 3 mg tablet (Lunesta) 3 mg PO HS #30 tabs 10/28/24 hydrocodone 7.5 mg-acetaminophen 1 tab PO Q6H PRN Pain #120 tabs 10/28/24 325 mg tablet semaglutide 1 mg/dose (4 mg/3 mL) 1 mg (0.75 mL) SQ WEEKLY #3 mL 10/28/24 subcutaneous pen injector (Ozempic) ondansetron 4 mg disintegrating 4 mg PO Q6H PRN nausea and 11/13/24 tablet vomiting #10 tabs Allergies Allergy/AdvReac Type Severity Reaction Status Date / Time No Known Allergies Allergy Verified 10/28/24 09:17 [facility] Disclaimer: The information contained in this section may have been updated after the patient was seen, as this information can be updated by other users. Medical History SNHL (sensorineural hearing loss) mild high frequency SNHL > 2KHZ bilaterally Dyspnea Perforated tympanic membrane Frequent headaches Tinnitus Hearing loss Anxiety HTN (hypertension) Depression Surgical History History of colonoscopy No history of previous surgery Family History Other Cancer Coronary artery disease Thyroid disorder Social History Smoking Status: Never smoker alcohol intake: never substance use type: denies use current occupational status: other Travel in the last 8 weeks: None housing: house caffeine: Yes Have you lived/traveled outside [place] in past 30 days?: No Contact w/someone who lives/traveled outside [place] past 30 days?: No Exposure to someone with infectious disease in past 14 days?: No Do you have a fever (greater than 100.4 F or 38 C)?: No Have you tested positive for COVID-19: No Exposed to someone with COVID-19 in past 14 days?: No Do you have a sore throat?: No Do you have a cough?: No Do you have any weakness?: No Do you have any diarrhea?: No Are you experiencing any unusual bleeding?: No Do you have any muscle aches/pain?: No Do you have any abdominal pain?: No Are you experiencing loss of taste or smell?: No Other Medical History Have you received the Flu Vaccine for this season: No Have you received the Pneumonia Vaccine: No ROS Obtained: Yes All systems reviewed & no additional complaints except as documented Physical Exam General General appearance: alert Head Head exam: atraumatic and normocephalic Eye Eye exam: Present normal appearance, PERRL and EOMI Neck Neck exam: Present normal inspection, full ROM and trachea midline Respiratory Respiratory exam: Absent respiratory distress, wheezes, stridor, accessory muscle use or prolonged expiratory phase Cardiovascular Cardiovascular exam: Present other (Pulses equal symmetric in upper and lower extremities) Abdominal Exam Abdominal exam: Present soft; Absent distention, tenderness or pulsatile mass Extremities Exam Extremities exam: Absent edema Neurological Exam Neurological exam: Present alert, oriented X3 and CN II-XII intact; Absent motor sensory deficit Skin Skin exam: Present warm and dry; Absent diaphoresis or erythema Medical Decision Making Medical Records Medical records reviewed: Yes I reviewed the patient's medical records. Screening: Per USPSTF and CDC recommendations, given the prevalence of disease in our region, it is our hospital?s policy to screen for HIV and viral Hepatitis for all patients aged 18 and over and those with ongoing risk factors. Lasha Inquiry Pt receiving controlled substance: No Lasha was queried for this patient: No Vital Signs: 11/13/24 21:23 11/13/24 21:30 11/13/24 23:13 Temperature 98.3 F 97.9 F Temperature Source Oral Oral Pulse Rate 103 H 74 Pulse Rate [Right Brachial] 77 Respiratory Rate 20 18 Blood Pressure 160/113 H 126/74 Blood Pressure [Right Arm] 160/108 H Blood Pressure Mean [Right Arm] 125 Blood Pressure Source Automatic Cuff Blood Pressure Source [Right Arm] Automatic Cuff Blood Pressure Position Supine Blood Pressure Position [Right Arm] Sitting 02 Sat by Pulse Oximetry 94 L 99 Oxygen Delivery Method Room Air Room Air Lab Data Lab Results 11/13/24 21:29: WBC 16.2 H, RBC 5.78, Hgb 18.2 H, Hct 51.4, MCV 88.9, MCH 31.3 H , MCHC 35.2, RDW 12.0, Plt Count 392, MPV 9.1, Neut % (Auto) 69.8, Lymph % (Auto) 19.3, [place] % (Auto) 7.2, Eos % (Auto) 2.7, Baso % (Auto) 0.4, Neut # (Auto) 11.3 H, Lymph # (Auto) 3.1, [place] # (Auto) 1.2 H, Eos # (Auto) 0.4, Baso # (Auto) 0.1, Total Counted 100, Neutrophils % (Manual) 64, Lymphocytes % (Manual) 20, Monocytes % (Manual) 9, Eosinophils % (Manual) 7 H, Platelet Estimate Normal, RBC Morphology Normal, Sodium 140, Potassium 3.8, Chloride 99, Carbon Dioxide 27, Anion Gap 17.8 H, BUN 12, Creatinine 0.90, Estimated Creat Clear 151, Estimated GFR 89, Est GFR ( Amer) 108, Glucose 102 H, Calcium 9.4, T otal Bilirubin 1.4 H, AST 99 H, ALT 125 H, Alkaline Phosphatase 78, Total Protein 9.8 H D, Albumin 5.6 H, Globulin 4.2 H, Albumin/Globulin Ratio 1.3, HCV Ab AYANA w/Rflx PCR Qn Negative, HIV Ag/Ab Combo Qual Negative 11/13/24 22:00: Stl Aeromonas (PCR) Not detected, Stl C. cayetanensis PCR Not detected, Stool Rotavirus (PCR) Not detected, Stl Adenov F 40/41 PCR Not detected, Stool Astrovirus (PCR) Not detected, Stool Campylobacter PCR Not detected, Stl C.difficile Tox PCR Detected A, Stool Cryptosporidium PCR Not detected, Stl E.coli Shiga Tox PCR Not detected, Stool E coli O157 PCR Not detected, Stl Enterotoxigenic E PCR Not detected, Stool EPEC (PCR) Not detected, Stool EAEC (PCR) Not detected, Stl E. histolytica PCR Not detected, Stool Giardia Lamblia PCR Not detected, Stool Salmonella PCR Not detected, Stool Sapovirus (PCR) Not detected, Stl P. shigelloides PCR Not detected, Stl Shigella/EIEC PCR Not detected, St Y.enterocolitica PCR Not detected, Stool Vibrio (PCR) Not detected, Stl Vibrio cholerae PCR Not detected, Stl Norovirus GI/GII PCR Not detected 11/13/24 21:29 11/13/24 21:29 Orders (Tests/Meds): ED MEDICATIONS Discontinued Medications Generic Name Dose Route Start Last Admin Trade Name Freq PRN Reason Stop Dose Admin Lactated Ringer's 1,000 mls @ 999 mls/hr 11/13/24 21:49 11/13/24 21:56 Lactated Ringer's 1000 Ml Bag IV 11/13/24 22:49 999 mls/hr .Q1H1M ONE Administration Ondansetron HCl 4 mg 11/13/24 21:49 11/13/24 21:56 Ondansetron 4mg/2ml Vial IV 11/13/24 21:50 4 mg ONCE ONE Administration ORDERS Category Date Time Status CBC w/Auto Diff [Complete Blood Count Auto Diff] Stat Lab 11/13/24 21:29 Completed CMP [Comprehensive Metabolic Panel] Stat Lab 11/13/24 21:29 Completed Diarrhea 6-11 Panel, Cdiff PCR Stat Lab 11/13/24 22:00 Completed HIV Combo Routine Lab 11/13/24 21:29 Completed Hepatitis C Ab Qual. W/ RFX Routine Lab 11/13/24 21:29 Completed Medical Decision Narrative: 49-year-old male presenting with vomiting and diarrheal syndrome. This been going on for 3 to 4 days at this point. Nonbloody, nonbilious vomiting, yellow and runny diarrhea. States that is also pretty malodorous. No abdominal pain, states that he has been unable to tolerate almost any p.o. intake for the last couple of days and just feels worn out. History was obtained via conversation with patient and significant other. On arrival, patient hemodynamically stable, alert, oriented x4, appropriate, GCS 15, moving all extremities spontaneously, pupils equal and reactive to light. Full physical exam performed and significant for well-appearing male no acute distress. He is mildly tachycardic. Normotensive, afebrile, speaking full sentences. Abdomen is soft, nontender, nondistended. No overlying skin changes. Differential includes gastritis, enteritis, gastroenteritis, fluid or diarrhea, infectious, among others. Patient placed on continuous cardiac monitoring and continuous pulse ox with initial blood pressure 160/108, heart rate 77, saturation 98% on room air. Patient was given fluids, Zofran for symptomatic management and correction of underlying abnormalities. Workup independently interpreted and significant for mild leukocytosis 16.2 with neutrophilia. Patient's anion gap mildly elevated at 17.8. LFTs elevated with AST 99, ALT 125, bilirubin mildly elevated at 1.4. CT imaging of the abdomen and pelvis was considered, patient has benign exam, history consistent with gastroenteritis and largely nonactionable labs consistent with acute viral syndrome. On reevaluation, patient states that he is ready to go home and feels a lot better. Asked for Zofran to be sent to the pharmacy. This was sent. Because patient at baseline without signs or symptoms of clinical decompensation, deemed appropriate for discharge. Results were relayed to patient who voiced understanding and were agreeable to outpatient management and follow up. I discussed my clinical impression with patient and answered all questions. At this time, the evidence for any other entities in the differential is insufficient to warrant any further testing or ED observation. This was explained as well. Advisory was given that persistent or worsening symptoms require further evaluation. I confirmed the understanding of this discussion. Equipment Service Associate disclaimer Much of this encounter note is an electronic cardiothoracic anesthesia technician spoken language to printed text. Electronic cardiothoracic anesthesia technician of the spoken language may permit errors. Although I have reviewed the note, some errors may still exist. Critical Care Critical Care Time Critical Care Time: No
[2024-11-13 23:01] LABS: HIV Combo NEGATIVE (Negative)
[2024-11-13 23:09] LABS: Hepatitis C Ab Qual. W/ RFX NEGATIVE (Negative)
[2024-11-13 23:13] VITALS: BP 126/74; PULSE 74; RESP 18; TEMP 36.6; O2SAT 98
--- NOTE | 2024-11-13 23:14 | PC.NURSE ---
IV removed. Catheter tip intact. Bleeding controlled.
[2024-11-13 23:21] LABS: Eosinophils % 7 % (0-3); Lymphocytes % 20 % (10-50); Monocytes % 9 % (2-9); Neutrophils % 64 % (42-76); Total Cells Counted 100
[2024-11-13 23:28] LABS: Platelet Estimate Normal; RBC Morphology Normal
[2024-11-13 23:36] LABS: Hemoglobin 18.2 g/dL (14.1-18.0)
[2024-11-14 01:39] LABS: Clostridium Difficile A/B, PCR Detected (NotDetected)
== END 2024-11-13 23:15 | disposition home or self-care (01) ==
PROVIDERS: Emergency Provider Emergency Medicine; PCP Family Medicine
DX: K52.9 Noninfective gastroenteritis and colitis, unspecified (principal); R11.2 Nausea with vomiting, unspecified
CPT/HCPCS: 80053; 85007; 85025; 85027; 86803; 87389; 87506; 96361; 96374; 99283; J2405; J7120

== ENCOUNTER 2025-03-22 09:37 | Outpatient (CLI) | payer MEDICARE, SELFPAY ==
[2025-03-22 21:30] LABS: Hematocrit 43.7 % (42.0-52.0); Hemoglobin 14.9 g/dL (14.1-18.0); Immature Granulocytes % 0.3 %; Mean Corpuscular HGB Conc 34.1 g/dL (31.8-35.4); Mean Corpuscular Hemoglobin 31.2 pg (27.0-31.2); Mean Corpuscular Volume 91.4 fl (80-94); Nucleated Red Blood Cells % 0 %; Platelet Count 311 K/mm3 (142-424); Red Blood Count 4.78 M/mm3 (4.60-6.20); Red Cell Distribution Width-SD 40.7 fL; White Blood Count 10.1 K/mm3 (4.8-10.8)
[2025-03-22 22:00] LABS: Cholesterol 186 mg/dl (140-200); HDL Cholesterol 37 mg/dl (40-60); Triglycerides 147 mg/dl (30-150)
--- OUTSIDE RECORDS SUMMARY | 2025-03-27 09:50 | XMS_ITS | Clinical Summary ---
Author Organization [facility] [address] Address [address] [place] [address] Care Team Providers Care Compass Operator Name Role Phone Caio Clark MD Primary Care Provider [phone] Allergies No known active allergies Medications No known medications Family History Medical History Relation Name Comments Asthma Brother High Blood Pressure Brother Arthritis Father Depression Father Heart Disease Father Mental Illness Father Arthritis Maternal Grandfather Cancer Maternal Grandfather Diabetes Maternal Grandfather Early Maternal Grandfather Arthritis Maternal Grandmother Cancer Maternal Grandmother Diabetes Maternal Grandmother Heart Disease Maternal Grandmother Arthritis Mother Arthritis Paternal Grandfather Cancer Paternal Grandfather Diabetes Paternal Grandfather Heart Disease Paternal Grandfather Arthritis Paternal Grandmother Cancer Paternal Grandmother Diabetes Paternal Grandmother Relation Name Status Comments Brother Father Maternal Grandfather Maternal Grandmother Mother Paternal Grandfather Paternal Grandmother Social History Tobacco Use Types Packs/Day Years Used Date Smoking Tobacco: Never Smokeless Tobacco: Current Tobacco Cessation:Ready to Q uit: No Alcohol Use Standard Drinks/Week Comments No 0 (1 standard drink = 0.6 oz pur e alcohol) 1-2 beer on weekends Sex and Gender Information Value Date Recorded Sex Assigned at Not on file Legal Sex Male 2:10 PM EDT Gender Identity Not on file Sexual Orientation Not on file Obstetrics History Last Filed Vital Signs Vital Sign Reading Time Taken Comments Blood Pressure 111/73 07/17/2013 4:18 PM EDT Pulse 69 07/17/2013 4:18 PM EDT Temperature 36.7 C (98 F) 07/17/2013 4:18 PM EDT Respiratory Rate 16 07/17/2013 4:18 PM EDT Oxygen Saturation 97% 07/17/2013 4:18 PM EDT Inhaled Oxygen Concentration - - Weight 102.1 kg (225 lb) 07/16/2013 5:06 PM EDT Height 185.4 cm (6' 1 ) 07/16/2013 5:06 PM EDT Body Mass Index 29.69 07/16/2013 5:06 PM EDT Plan of Treatment Health Maintenance Due Date Last Done Comments Annual Wellness Exam 1977 DTaP/TDaP/Td (1 - Tdap) 1993 Hepatitis B Vaccine (1 of 3 - 19+ 3-dose series) 1993 Cologuard 2019 Colon Cancer Screening 2019 Colonoscopy 2019 FIT 2019 Sigmoidoscopy 2019 Virtual Colonography 2019 COVID-19 Vaccine (1 - 2023-2 5 season) 2024 Pneumococcal Vaccine 50+ (1 of 1 - PCV) 2024 Zoster (1 of 2) 2024 Influenza Vaccine (#1) 2025 Meningococcal B Vaccine Aged Out No l onger eligible based on patient's age to complete this topic Insurance [employer] Care Teams Compass Operator Relationship Specialty Start Date End Date Caio Clark MD PCP - General Family Medicine 07/16/13
--- OUTSIDE RECORDS SUMMARY | 2025-03-27 09:50 | XMS_ITS | Clinical Summary ---
Author Organization Healthcare Address [address] [id number] Care Team Providers Care Hospital Supervisor Name Role Phone Pcp, No Primary Care Provider Unavailabl e Allergies No known active allergies Medications albuterol 108 (90 Base) MCG/ACT inhaler 2 puffs. 02/29/2024 Act luh lisinopril 20 MG tablet 1 tablet (20 mg). 03/30/2024 Active sildenafil (Viagra) 100 MG tablet 1 tablet (100 mg). 01/27/2024 Active HYDROcodone-acet aminophen (White) 7.5-325 MG tablet Take 1 tablet (7.5 mg of hydrocodone) by mouth every 8 (eight) hours if needed. Active naproxen (Naprosyn) 500 MG tablet 06/22/2024 Active ALPRAZolam (Xanax) 1 MG tablet TAKE 1 TABLET BY MOUTH TWICE DAILY FOR NERVES Active zolpidem CR (Ambien CR) 12.5 MG ER tablet TAKE 1 TABLET BY MOUTH AT BEDTIME NIGHTLY NEEDED FOR SLEEP Active traZODone (Desyrel) 150 MG tablet 1 tablet (150 mg). 02/29/2024 Active Testosterone (Androgel) 40.5 MG/2.5GM (1.62%) transdermal gel 1 (one) time each day. 03/30/2024 Active Active Problems No known active problems Social History Tobacco Use Types Packs/Day Years Used Date Smoking Tobacco: Never Smokeless Tobacco: Never Tobacco Cessation:Counseling Given: Not Answered Alcohol Use Standard Drinks/Week Comments Never 0 (1 standard drink = 0.6 oz pur e alcohol) Sex and Gender Information Value Date Recorded Sex Assigned at Not on file Legal Sex Male 8:02 PM EDT Gender Identity Not on file Sexual Orientation Not on file Last Filed Vital Signs Vital Sign Reading Time Taken Comments Blood Pressure 115/70 06/22/2024 2:51 PM EDT Pulse 89 06/22/2024 2:51 PM EDT Temperature 36.7 C (98.1 F) 06/22/2024 2:51 PM EDT Respiratory Rate 18 06/22/2024 2:51 PM EDT Oxygen Saturation 98% 06/22/2024 2:51 PM EDT Inhaled Oxygen Concentration - - Weight 127 kg (280 lb) 06/22/2024 2:51 PM EDT Height 182.9 cm (6') 06/22/2024 2:51 PM EDT Body Mass Index 37.97 06/22/2024 2:51 PM EDT Plan of Treatment Health Maintenance Due Date Last Done Comments [facility]-Depression Screening 1974 [facility]-HIV Screening 1974 [facility]-Hepatitis C Screening 1974 [facility]-Medicare Annual Wellness (AWV) 1974 [facility]-/Child/Adol SDOH Screenings 1974 [facility]- SDOH Screenings 1992 [facility]-Adult SDOH Screenings 1992 [facility]-Hepatitis B Vaccines (1 of 3 - 19+ 3-dose series) 1993 [facility]-DTaP,Tdap,and Td Vaccine s (1 - Tdap) 11/29/1996 11/28/1996 CT Colonography 2019 Colonoscopy 2019 FIT-DNA 2019 FIT 2019 FOBT 2019 Sigmoidoscopy 2019 [facility]-Colorectal Cancer Screening 2019 [id number] Vaccine (1 - 20 24-25 season) 2024 [facility]-Pneumococcal Vaccine: 50 + Years (1 of 1 - PCV) 2024 [facility]-Zoster Vaccines (1 of 2) 2024 [facility]-Influenza Vaccine (#1) 2025 [facility]-Obesity Intervention Completed 06/22/2024 HPV Vaccines Aged Out No longer eligi ble based on patient's age to complete this topic [facility]-HIB Vaccines Aged Out No longer e ligible based on patient's age to complete this topic [facility]-Hepatitis A Vaccines Aged Out No longer eligible based on patient's age to complete this topic [facility]-IPV Vaccines Aged Out No longer e ligible based on patient's age to complete this topic [facility]-Rotavirus Vaccines Aged Out No lo nger eligible based on patient's age to complete this topic Insurance [employer] Care Teams Hospital Supervisor Relationship Specialty Start Date End Date Pcp, [facility] [address] [place] [address] PCP - General Family Medicine 05/22/24
--- OUTSIDE RECORDS SUMMARY | 2025-03-27 09:50 | XMS_ITS | Data Portability ---
Author Organization [facility] Address [address] [place] [address] Assessment No assessment recorded. Plan of Treatment Reminders Order Date Submit Date Provider Last Modified By Organization Details Last Modified Time Details Appointments None recorded. Lab rapid strep group A, throat 2022 023 [facility], [address] [place] [address], [id number], 3 14:54:21 rapid flu (A+B) 2022 023 [facility], [address] [place] [address], [id number], 3 14:54:21 rapid SARS CoV + SARS CoV 2 Ag, QL IA, respiratory specimen 2022 023 [facility], [address] [place] [address], [id number], 3 14:54:21 Referral None recorded. Procedures None recorded. Surgeries None recorded. Imaging MRI, lumbar spine, w/o contrast - workers comp 2022 023 [facility] ([facility]), [address], [place], [address], 3 11:27:00 XR, lumbar spine 2022 023 [email or web address] [facility], [address] [place], [address], 16:52:36 US, duplex, venous, lower extremity, unilateral - workers comp 2022 023 [facility] ([facility]), [address], [place], [address], 14:47:58 Medication Orders prednisone 20 mg tablet 2022 023 JAMIL Not available 15:10:31 Zithromax Z-Robbi 250 mg tablet 2022 023 JAMIL Not available 15:10:25 fluticasone propionate 50 mcg/actuati on nasal spray,suspe nsion 2022 023 JAMIL Not available 15:10:36 Patient TargetsNo targets recorded. Patient Instructions Encounter Date Encounter Id Patient Instructions Last Modified By Organization Details Last Modified Time 01/30/2022 [id number] This patient com es in today for follow-up of his chronic back pain. He has been involved in a legal situation with his Workmen's Comp. He tells me that his side stitcher advised him to go elsewhere other than us for his routine situation he sees Dr. Asaf Lorenzana from this.Goes to Dr. Chapman for his chronic pain management.He is requesting a lift chair states he is back as such that it is extremely difficult for him to get into his bed into a comfortable position without the use of this lift chair. Specifications were brought to me I went ahead and wrote those specifications on prescription pad and hopefully this will help his management of his chronic back pain.We will continue to see him as time goes on same in about 2 to 3 months depending upon his needs. [email or web address] Not available 01/30/2022 16:58:17 12/10/2022 [id number] post-traumatic stress disorder (PTSD): care instructions [email or web address] Not available 12/10/2022 15:15:08 This patient com es in complaining mostly of lower back pain as well as right leg pain numbness and tingling noted in the right leg.He denies any recent injury. States he is starting a new job work whereupon he is up more on his legs and does a lot more walking than usual and attributes some of the discomfort being worse since he has been on this type of work. 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 I would also like to do a venous Doppler of the right lower extremity to rule out DVT.We will get these test and get back with him on the results and go from there is forced to treatment etc.In reviewing his Lasha it looks like the patient is on scheduled medication for his back pain from another practitioner.We will follow-up follow-up with him on the results of these studies are returned. Not available 12/10/2022 15:14:28 02/20/2023 [id number] learning about healthy weight [email or web address] Not available 02/22/2023 15:21:57 body mass index: care instructions [email or web address] Not available 02/22/2023 15:21:57 hypothyroidism: care instructions [email or web address] Not available 02/20/2023 16:45:36 This patient com es in for follow-up of his pain and disc disease.He recently had an MRI of the lumbar spine performed this does show generalized degenerative changes with disc disease particularly at L5-S1. Hemangioma L5. I am not sure how this compares with the old MRIs and that what had been done in the past.Given a copy of this he is going to present to his side stitcher for further evaluation and pursuit of Workmen's Compensation insurance.So has not a lot of other questions he is concerned about him running out of his oxycodone or hydrocodone he sees another practitioner in [place] told him he really need to check back with him supposed supposedly he is on vacation now but again I told him he needs to get all that type medication from one provider.Questions about his depression and his depression medication I referred him back to his PCP for further guidance along those lines.Agreed to see him for those that part of his illness concerning his Workmen's Comp. and let the rest of it will be left up to his regular physician.Did give him prescription for a back brace that he can get at the local supply house hopefully this will help with his situation somewhat.See him back in about 2 months or so depending on his condition and situation. [email or web address] Not available 02/23/2023 12:13:00 05/06/2023 [id number] This patient com es in for follow-up he was seen me primarily for Workmen's Comp. treatment of injuries several years ago. He does have multiple other problems including chronic back pain chronic lumbar disc pain.Likewise has a history of posttraumatic stress syndrome. 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 Examination was not too much difference on this gentleman. He was complaining of sleeping problems again was quite hesitant to suggest anything as he is already seeing a practitioner for these problems his Lasha was evaluated and seems appropriate. I suggested he may want to consider higher dose of Ambien or longer acting dose specifically Ambien 12.5 mg I did not write him prescription but it was suggested that is something he might want to try. Otherwise he seems about the same like to see him back in about 2 months or so. If he needs me for further evaluation as to his Workmen's Comp. we will be available. [email or web address] Not available 05/07/2023 08:43:23 Reason for Referral None Reported. Results Created Date Observation Date Name Description Value Unit Range Abnormal Flag Note LastModifiedBy Organization Detail LastModifiedTime 03/13/20 22 03/13/2022 COLOG UARD cologuard result Cancel led - Order d not applic able Not Available [facility] (Cologuard Orders Only) [address], [place], [address], 03/13/2022 07:26:55 06/15/20 23 06/15/2023 rapid SARS CoV + SARS CoV 2 Ag, QL IA, respi rator y speci men SARS CoV antigen Negati ve Not Available [address], [address], 06/15/2023 13:55:14 06/15/20 23 06/15/2023 rapid flu (A+B) Flu negati ve Not Available [address], [address], 06/15/2023 13:54:55 06/15/20 23 06/15/2023 rapid flu (A+B) Type Both A & B Not Available [address], [address], 06/15/2023 13:54:55 06/15/20 23 06/15/2023 rapid strep group A, throa t Strep negati ve Not Available [address], [address], 06/15/2023 13:53:29 06/15/20 23 06/15/2023 rapid strep group A, throa t Culture No Not Available [address], [address], 06/15/2023 13:53:29 12/11/19 23 12/10/2022 XR, lumba r spine No observ ation record ed. [email or web address] [facility] [address] [place], [address], 12/16/2022 14:07:24 12/16/19 23 12/15/2022 US, jayshree x, nury s, [facility] mity, donnaa teral No observ ation record ed. [facility] [address], [place], [address], 12/16/2022 14:07:25 02/20/20 23 12/22/2022 MRI, lumba r spine , w/o contr ast No observ ation record ed. [email or web address] [facility] (Scheduling) [address], [place], [address], 02/23/2023 11:32:51 Result Notes None recorded. Problems Name Problem SNOMED Code Status Onset Date Resolution Date Notes Provider Name and Address Organization Details Recorded Time Posttraumat ic stress disorder 13222579 Active 2016 [place] - [facility] 16:56:09 Insomnia 667544861 Active 2016 [place] - [facility] 16:56:38 Anxiety 98496029 Active 2017 Josiane Santo RN [address], [place], [address], [place] - [facility] 2 16:38:46 Hypertensiv e disorder 81156239 Active 2019 [place] - [facility] 0 10:56:56 Hypothyroid ism 10831244 Active 2019 Josiane Santo RN [address], [place], [address], [place] - [facility] 2 16:38:35 Carpal tunnel syndrome 70052768 Completed 201909/05/2021 Kaleb Jones MD [address], [place], [address], [place] - [facility] 1 16:52:36 Excision of skin tag Active 2020 Kaleb Jones MD [address], [place], [address], [place] - [facility] 1 08:18:46 Chronic back pain 726212872 Active 2015 Josiane Santo RN [address], [place], [address], [place] - [facility] 2 16:38:37 Mixed hyperlipide glory 666778052 Active 2015 Dannielle Jo [facility], [place] - [facility] 6 14:29:20 Lumbar disc lesion 572264423 Active 2016 Caio Clark null, [place] - [facility] 7 10:52:40 Renewal of prescriptio n Completed 201605/18/2017 Rebekah Scott in [facility] [place] - [facility] 17:47:34 Problem Notes None recorded. Procedures Surgical History Date Name Laterality Status Provider Name and Address Organization Details Recorded Time 1 Systolic B/P less than 130 mm Hg completed Celi Thomas [place] - [facility] 11/09/2020 14:26:14 1 Diastolic B/P 80-89 mm Hg completed Celi Thomas [place] - [facility] 11/09/2020 14:26:17 0 Systolic B/P less than 130 mm Hg completed Celi Thomas [place] - [facility] 08/23/2020 14:50:42 0 Diastolic B/P 80-89 mm Hg completed Celi Thomas [place] - [facility] 08/23/2020 14:50:45 0 Systolic B/P less than 130 mm Hg completed Celi Thomas [place] - [facility] 06/21/2020 13:06:40 0 Diastolic B/P 80-89 mm Hg completed Celi Thomas [place] - [facility] 06/21/2020 13:06:42 0 Systolic B/P less than 130 mm Hg completed Celi Thomas [place] - [facility] 04/25/2020 13:18:56 0 Diastolic B/P 80-89 mm Hg completed Celi Thomas [place] - [facility] 04/25/2020 13:18:58 0 Diastolic B/P 80-89 mm Hg completed Celi Thomas [place] - [facility] 02/22/2020 11:06:57 0 Systolic B/P 130-139 mm Hg completed Celi Thomas [place] - [facility] 02/22/2020 11:06:54 0 Systolic B/P less than 130 mm Hg completed Celi Thomas [place] - [facility] 11/23/2019 14:46:20 0 Diastolic B/P 80-89 mm Hg completed [facility] 11/23/2019 14:46:26 Imaging Results None recorded. Procedure Notes None recorded. Medical Equipment None Reported. Allergies Allergen ID Allergen Name Allergen Category Reaction Reaction Severity Criticality Documentation Date Start Date Code Code System Note Provider Name and Address Organization Details Recorded Time 75128 Demerol medicatio n vomiting Not available Not available 06/27/20162009 86205 1 RxNorm React ion: vomit ting; Not Available [facility] 6 09:20:16 60179 ibuprofen medicatio n rash Not available Not available 06/27/20162007 5640 RxNorm React ion: Rash - diffu se; Comme nt: Ibupr ofen; Not Available [facility] 6 09:20:16 98603 Ultracet medicatio n hives Not available Not available 06/27/20162009 29284 2 RxNorm React ion: hives ; Not Available [facility] 6 09:20:16 Medications Name Sig Start Date Stop Date Status Note LastModified by Organization Details LastModified Time Prescript ion - Renewal 06/15 completed Not Available Not Available Not Available cyclobenz aprine 10 mg tablet TAKE 1 TABLET BY MOUTH 2 TIMES A DAY NEEDED FOR MUSCLE SPASMS active Not Available Not Available No t Available amoxicill in 500 mg capsule take 1 capsule by oral route 3 times a day 05/18 completed Not Available Not Available Not Available Bromfed DM 2 mg-30 mg-10 mg/5 mL oral syrup take 10 millilit ers by oral route every 4 hours 08/28 completed Bromfed DM 2-30-10 mg/5 mL oral syrup;Pr escribe Status: Prescrib ed on: 06/22/20 14 3:46PM;D iscontin ued Status: Disconti nued on: 08/28/20 14 9:16AM;U ser: [email or web address];P harmacyV erified: 06/22/20 14 3:46PM Not Available Not Available Not Available gabapenti n 600 mg tablet take 1 tablet by oral route once a day (at bedtime) 12/10 completed Not Available Not Available Not Available triazolam 0.25 mg tablet 06/15 completed Not Available Not Available Not Available azithromy asha 250 mg tablet TAKE 2 TABLETS (500 MG) BY ORAL ROUTE ONCE DAILY FOR 1 DAY THEN 1 TABLET (250 MG) BY ORAL ROUTE ONCE DAILY FOR 4 DAYS active Not Available Not Available No t Available alprazola m 1 mg tablet Take 1 tablet 4 times a day by oral route as directed for 28 days. active Not Available Not Available No t Available tizanidin e 4 mg tablet 06/15 completed Not Available Not Available Not Available doxepin 25 mg capsule 06/15 completed Not Available Not Available Not Available hydrocodo ne 5 mg-acetam inophen 325 mg tablet 01/31 completed Not Available Not Available Not Available Darvocet- N 100 100 mg-650 mg tablet 1 po tid 02/12 completed Darvocet -N 100 100-650 mg oral tablet;R ecorded Status: Recorded on: 06/24/20 08 10:03PM; Disconti nued Status: Disconti nued on: 02/13/20 10 3:12PM;U ser: neuss Not Available Not Available Not Available meloxicam 15 mg tablet 02/20 completed Not Available Not Available Not Available lisinopri l 20 mg tablet TAKE 1 TABLET BY MOUTH ONCE A DAY active Not Available Not Available No t Available prednison e 20 mg tablet Take 1 tablet twice a day by oral route for 5 days. active Not Available Not Available No t Available Viagra 50 mg tablet take 1 tablet (50 mg) by oral route once daily as needed approxim ately 1 hour before sexual activity for 30 days 06/15 completed Viagra 50 mg oral tablet;P rescribe Status: Prescrib ed on: 05/09/20 13 1:38PM;D iscontin ued Status: Disconti nued on: 06/15/20 13 6:33PM;U ser: neuss;Es t. Completi on: 06/08/20 13;Indic ation: Erectile Dysfunct ion - (10.6078 40);Phar macyVeri fied: 05/09/20 13 1:38PM Not Available Not Available Not Available sertralin e 100 mg tablet Take 1 tablet every day by oral route. 07/31 completed Not Available Not Available Not Available Maxalt 10 mg tablet take 1 tablet (10 mg) by oral route once, may repeat at 2 hour interval s; do not exceed 30 mg in 24 hours for 30 days 06/15 completed Maxalt 10 mg oral tablet;R ecorded Status: Recorded on: 11/30/19 13 3:31PM;D iscontin ued Status: Disconti nued on: 06/15/20 13 6:33PM;U ser: neuss;Jennifer Lopez on: 12/30/19 13;Print ed: 11/30/19 13 Not Available Not Available Not Available venlafaxi ne ER 150 mg capsule,e xtended release 24 hr TAKE 1 CAPSULE BY MOUTH ONCE A DAY 06/15 completed Not Available Not Available Not Available Ultram 50 mg tablet tid prn 10/15 completed Ultram 50 mg oral tablet;R ecorded Status: Recorded on: 02/27/20 11 2:43PM;D iscontin ued Status: Disconti nued on: 10/15/19 13 9:58AM;U ser: neuss;In dication : Pain - (16.7809 00) Not Available Not Available Not Available penicilli n V potassium 500 mg tablet 06/15 completed Not Available Not Available Not Available acetamino phen 300 mg-codein e 30 mg tablet TAKE 1 TABLET BY MOUTH 3 TO 4 TIMES DAILY NEEDED FOR PAIN 04/21 completed Not Available Not Available Not Available ciproflox acin 500 mg tablet 08/29 completed Not Available Not Available Not Available hydrocodo ne 10 mg-acetam inophen 325 mg tablet take 1 tablet by oral route every 6 hours as needed for pain for 10 days 06/24 completed hydrocod one-acet aminophe n 10-325 mg oral tablet;R ecorded Status: Recorded on: 01/31/20 14 12:29PM; Disconti nued Status: Disconti nued on: 06/24/20 14 10:10AM; User: swati;Es t. Completi on: 02/10/20 14;Indic ation: Pain - (.2227 ) Not Available Not Available Not Available doxycycli ne monohydra te 100 mg tablet 04/24 completed Not Available Not Available Not Available quetiapin e 100 mg tablet TAKE 1 TO 2 TABLETS AT AT BEDTIME NEEDED FOR SLEEP OR ANXIETY 12/10 completed Not Available Not Available Not Available amitripty line 50 mg tablet Take 1 tablet every day by oral route at bedtime. active Not Available Not Available No t Available ondansetr on 8 mg disintegr ating tablet 04/21 completed Not Available Not Available Not Available lidocaine -prilocai ne 2.5 %-2.5 % topical cream 06/15 completed Not Available Not Available Not Available Lipitor 20 mg tablet take 1 tablet (20 mg) by oral route once daily for 30 days 11/11 completed Lipitor 20 mg oral tablet;R ecorded Status: Recorded on: 07/21/20 13 10:40AM; Disconti nued Status: Disconti nued on: 11/11/19 14 5:57PM;U ser: neuss;Es t. Completi on: 01/18/20 14;Indic ation: Primary Preventi on of Coronary Heart Disease - (744361 ) Not Available Not Available Not Available levothyro xine 75 mcg tablet TAKE 1 TABLET EVERY DAY BY ORAL ROUTE. active Not Available Not Available No t Available cyprohept adine 4 mg tablet Take 1 tablet 3 times a day by oral route. 04/21 completed Not Available Not Available Not Available oxycodone -acetamin ophen 5 mg-325 mg tablet 12/10 completed Not Available Not Available Not Available alprazola m 0.5 mg tablet Take 1 tablet 4 times a day by oral route for 30 days. 12/10 completed Not Available Not Available Not Available amitripty line 25 mg tablet 04/21 completed Not Available Not Available Not Available methocarb gama 750 mg tablet prn active Not Available Not Available No t Available Percocet 10 mg-325 mg tablet take 0.5 tablet by oral route 2 times a day as needed 02/26 completed Percocet 10-325 mg oral tablet;R ecorded Status: Recorded on: 04/16/20 10 8:26PM;D iscontin ued Status: Disconti nued on: 02/27/20 11 1:58PM;U ser: neuss;In dication : Pain - (3813 ) Not Available Not Available Not Available trazodone 100 mg tablet TAKE 1 TABLET BY MOUTH AT BEDTIME NEEDED FOR SLEEP 06/15 completed Not Available Not Available Not Available temazepam 30 mg capsule Take 1 capsule every day by oral route. 09/05 completed Not Available Not Available Not Available Zofran ODT 4 mg disintegr ating tablet one tablet every 4 hours prn for nausea and vomiting 08/28 completed Zofran ODT 4 mg oral tablet,d isintegr ating;Pr escribe Status: Prescrib ed on: 06/22/20 14 3:46PM;D iscontin ued Status: Disconti nued on: 08/28/20 14 9:16AM;U ser: [email or web address];P harmacyV erified: 06/22/20 14 3:46PM Not Available Not Available Not Available gemfibroz il 600 mg tablet take 1 tablet (600 mg) by oral route 2 times per day 30 minutes before morning and evening meal 06/15 completed gemfibro zil 600 mg oral tablet;R ecorded Status: Recorded on: 03/20/20 11 1:52PM;D iscontin ued Status: Disconti nued on: 06/15/20 13 6:33PM;U ser: bishopk; Est. Completi on: 09/16/20 11;Indic ation: Hypertri glycerid emia - (6626 ) Not Available Not Available Not Available hydrocodo ne 7.5 mg-acetam inophen 325 mg tablet 1/2-1 po q 24 hours prn severe pain active Not Available Not Available No t Available esomepraz ole magnesium 40 mg capsule,d elayed release 06/15 completed Not Available Not Available Not Available hydrocodo ne 7.5 mg-acetam inophen 750 mg tablet take 1 tablet by oral route 3 times a day as needed for 10 days 11/11 completed hydrocod one-acet aminophe n 7.5-750 mg oral tablet;R ecorded Status: Recorded on: 08/01/20 13 3:07PM;D iscontin ued Status: Disconti nued on: 11/11/19 14 5:56PM;U ser: neuss;Es t. Completi on: 08/11/20 13;Indic ation: Pain - (16.7809 00) Not Available Not Available Not Available lisinopri l 10 mg tablet TAKE 1 TABLET EVERY DAY BY ORAL ROUTE. 02/20 completed Not Available Not Available Not Available lidocaine 5 % topical patch 06/15 completed Not Available Not Available Not Available Xenical 120 mg capsule take 1 capsule (120 mg) by oral route 3 times per day with each main meal containi ng fat for 30 days 05/03 completed Xenical 120 mg oral capsule; Recorded Status: Recorded on: 11/05/19 16 4:35PM;U ser: neuss;Es t. Completi on: 05/03/20 16;Indic ation: Weight Loss Manageme nt for Obese Patient (BMI >= 30) - (03.2780 02) Not Available Not Available Not Available gabapenti n 300 mg capsule Take 1 capsule every 8 hours by oral route as directed for 30 days. 08/11 completed Not Available Not Available Not Available Xylocaine with Epinephri ne 1 %-1:100,0 00 injection solution 2 cc 06/15 completed left upper torso Not Available Not Available Not Available lisinopri l 5 mg tablet take 1 tablet (5 mg) by oral route once daily for 30 days 11/11 completed lisinopr il 5 mg oral tablet;R ecorded Status: Recorded on: 06/19/20 13 9:48AM;D iscontin ued Status: Disconti nued on: 11/11/19 14 5:57PM;U ser: neuss;Es t. Completi on: 12/17/19 14 Not Available Not Available Not Available Levaquin 500 mg tablet take 1 tablet (500 mg) by oral route once daily for 10 days 06/15 completed Levaquin 500 mg oral tablet;R ecorded Status: Recorded on: 10/15/19 13 10:52AM; Disconti nued Status: Disconti nued on: 06/15/20 13 6:33PM;U ser: neuss;Es t. Completi on: 10/25/19 13;Indic ation: Symptoms Involvin g Respirat ory System And Chest - (786.9) Not Available Not Available Not Available Aspir-81 mg tablet,de layed release take 1 tablet (81 mg) by oral route once daily for 30 days 06/15 completed Aspir-81 81 mg oral tablet,d elayed release (/DEMI); Recorded Status: Recorded on: 05/14/20 11 9:12AM;D iscontin ued Status: Disconti nued on: 06/15/20 13 6:33PM;U ser: bishopk Not Available Not Available Not Available oxycodone -acetamin ophen 7.5 mg-325 mg tablet 12/10 completed Not Available Not Available Not Available zolpidem 10 mg tablet Take 1 tablet every day by oral route for 30 days. 06/15 completed Not Available Not Available Not Available methylpre dnisolone 4 mg tablets in a dose pack Take as Directed active Not Available Not Available No t Available albuterol sulfate HFA 90 mcg/actua tion aerosol inhaler active Not Available Not Available Not Available ketorolac 60 mg/2 mL intramusc ular solution 2cc now 09/09 completed Not Available Not Available Not Available piroxicam 20 mg capsule 1 po bid 02/12 completed piroxica m 20 mg oral capsule; Recorded Status: Recorded on: 06/24/20 08 10:05PM; Disconti nued Status: Disconti nued on: 02/13/20 10 3:12PM;U ser: neuss Not Available Not Available Not Available fluticaso ne propionat e 50 mcg/actua tion nasal spray,[employer] [place] 1 spray every day by intranas al route. active Not Available Not Available No t Available sertralin e 50 mg tablet 06/23 completed Not Available Not Available Not Available risperido ne 1 mg tablet 05/18 completed Not Available Not Available Not Available dicyclomi ne 10 mg capsule 09/09 completed Not Available Not Available Not Available Augmentin 500 mg-125 mg tablet take 1 tablet by oral route TID 06/24 completed Augmenti n 500-125 mg oral tablet;R ecorded Status: Recorded on: 01/31/20 14 12:29PM; Disconti nued Status: Disconti nued on: 06/24/20 14 10:10AM; User: neuss;Es t. Completi on: 02/10/20 14 Not Available Not Available Not Available naproxen 500 mg tablet TAKE 1 TABLET TWICE A DAY BY ORAL ROUTE NEEDED FOR 90 DAYS. active Not Available Not Available No t Available amoxicill in 875 mg-potass ium clavulana te 125 mg tablet active Not Available Not Available Not Available Lodine 400 mg tablet take 1 tablet (400 mg) by oral route 2 times per day with food for 30 days 02/12 completed Lodine 400 mg oral tablet;R ecorded Status: Recorded on: 12/28/19 10 11:01AM; Disconti nued Status: Disconti nued on: 02/13/20 10 3:12PM;U ser: [email or web address];Es t. Completi on: 01/27/20 10 Not Available Not Available Not Available azithromy asha 500 mg tablet 12/10 completed Not Available Not Available Not Available escitalop emmanuel 20 mg tablet Take 1 tablet every day by oral route. active Not Available Not Available No t Available Skelaxin 800 mg tablet Take 1 tablet 3 times a day by oral route. 04/21 completed Not Available Not Available Not Available bupropion HCl XL 150 mg 24 hr tablet, extended release 04/21 completed Not Available Not Available Not Available zolpidem ER 12.5 mg tablet,ex tended release,m ultiphase active Not Available Not Available No t Available amitripty line 25m q hs 05/18 completed Not Available Not Available Not Available Keflex one qid 12/25 completed keflex 250 mg.;Prem rded Status: Recorded on: 08/28/20 14 9:16AM;D iscontin ued Status: Disconti nued on: 12/26/19 15 10:41AM; User: anthony Est. Completi on: 09/04/20 14;Indic ation: infec - (-5) Not Available Not Available Not Available Lomotil one q 4 hrs prn 12/25 completed lomotile 2.5 mg.;Prem rded Status: Recorded on: 06/24/20 14 10:10AM; Disconti nued Status: Disconti nued on: 12/26/19 15 10:41AM; User: anthony Est. Completi on: 07/02/20 14;Indic ation: jaclyn - (-5) Not Available Not Available Not Available Tamiflu one bid 12/25 completed tamiflu 75 mg.;Prem rded Status: Recorded on: 08/28/20 14 9:16AM;D iscontin ued Status: Disconti nued on: 12/26/19 15 10:41AM; User: anthony Est. Completi on: 09/02/20 14;Indic ation: flu - (-5) Not Available Not Available Not Available Hydrocodo ne one q 4 hrs prn pain 09/02 completed hydrocod one 5/325;Re corded Status: Recorded on: 08/28/20 14 9:16AM;U ser: anthony Est. Completi on: 09/02/20 14;Indic ation: pain - (-5) Not Available Not Available Not Available Phenergan W/Codeine one tsp qid prn cough 12/25 completed phenerga n with codiene standard ;Recorde d Status: Recorded on: 08/28/20 14 9:16AM;D iscontin ued Status: Disconti nued on: 12/26/19 15 10:41AM; User: anthony Est. Completi on: 09/04/20 14;Indic ation: cough - (-5) Not Available Not Available Not Available ondansetr on HCl (PF) 4 mg/2 mL injection solution Take 8 mg as needed by injectio n route. 12/07/ 2016 10/03 /2017 completed given in separate injectio ns 2cc/4mg each--in upper and lower L ventrogl uteal Not Available Not Available Not Available levocetir izine 5 mg tablet Take 1 tablet every day by oral route. 06/15 completed Not Available Not Available Not Available Seroquel XR 150 mg tablet,ex tended release take 1 tablet (150 mg) by oral route once daily in the evening without food or with a light meal for 30 days 06/15 completed Seroquel XR 150 mg oral tablet extended release 24 hr;Recor ded Status: Recorded on: 05/14/20 11 10:34AM; Disconti nued Status: Disconti nued on: 06/15/20 13 6:33PM;U ser: neuss;Es t. Completi on: 04/08/20 12 Not Available Not Available Not Available AndroGel 1.62 % (20.25 mg/1.25 gram) transderm al gel packet apply 1 packet (20.25 mg) by transder mal route once daily in the morning to each upper arm and shoulder , then apply 20.25 mg to either the r 11/11 completed AndroGel 1.62 % (20.25 mg/1.25 gram) transder mal gel in packet;R ecorded Status: Recorded on: 06/20/20 13 10:56AM; Disconti nued Status: Disconti nued on: 11/11/19 14 5:56PM;U ser: neuss;Es t. Completi on: 09/18/20 13;Indic ation: Male Hypogona dism - (2572 ) Not Available Not Available Not Available Temi-D one bide 06/15 completed allegera d 12 hr;Recor ded Status: Recorded on: 10/17/19 13 2:14PM;D iscontin ued Status: Disconti nued on: 06/15/20 13 6:33PM;U ser: [email or web address]; Est. Completi on: 10/24/19 13;Indic ation: uri - (-5) Not Available Not Available Not Available Trintelli x 20 mg tablet active Not Available Not Available Not Available Vitals Date Recorded Body height Body mass index (BMI) Body weight Heart rate Oxygen saturation Oxygen saturation in Arterial blood by Pulse oximetry Respiratory rate Systolic And Diastolic Provider Name and Address Organization Details Last Updated DateTime 3 182.88 cm 34.2 kg/m2 934166. 28 g 91 /min 98 % 98 % 18 /min 130/84 mm[Hg] [facility] 3 14:04:49 Date Recorded Body height Body mass index (BMI) Body weight Heart rate Oxygen saturation Oxygen saturation in Arterial blood by Pulse oximetry Respiratory rate Systolic And Diastolic Provider Name and Address Organization Details Last Updated DateTime 2 182.88 cm 36.1 kg/m2 696668. 57 g 78 /min 97 % 97 % 18 /min 130/86 mm[Hg] [facility] 2 15:59:26 Date Recorded Body height Body mass index (BMI) Body weight Heart rate Respiratory rate Oxygen saturation Oxygen saturation in Arterial blood by Pulse oximetry Systolic And Diastolic Systolic And Diastolic Provider Name and Address Organization Details Last Updated DateTime 3 182.88 cm 34.7 kg/m2 843964. 65 g 52 /min 18 /min 98 % 98 % 150/90 mm[Hg] 150/90 mm[Hg] [facility] 3 14:17:10 Date Recorded Body height Body mass index (BMI) Body weight Heart rate Oxygen saturation Oxygen saturation in Arterial blood by Pulse oximetry Respiratory rate Systolic And Diastolic Provider Name and Address Organization Details Last Updated DateTime 3 182.88 cm 34.9 kg/m2 723974. 24 g 87 /min 98 % 98 % 18 /min 130/86 mm[Hg] [facility] 3 14:19:23 Date Recorded Body height Body mass index (BMI) Body weight Body temperature Respiratory rate Systolic And Diastolic Provider Name and Address Organization Details Last Updated DateTime 3 182.88 cm 35.5 kg/m2 394654. 2 g 98.5 [degF] 18 /min 134/82 mm[Hg] Sahra [facility] 3 13:42:10 Social History Question Answer Notes LastModified by Organizat ion Details LastModified Time Tobacco Smoking Status Never Smoker Dannielle Jo [facility], [place] - [facility] 08/27/2016 14:31:35 How Many Years Have You Consumed Alcohol? 20 Information not available 06/21/2021 Are You Blind Or Do You Have Difficulty Seeing? No [email or web address] Information n ot available 06/21/2021 What Is Your Level Of Caffeine Consumption? Occasional Information not available 04/25/2020 In The 14 Days Before Symptom Onset, Have You Had Close Contact With A Laboratory-confirm ed COVID-19 While That Case Was Ill? No Information n ot available 06/21/2021 In The 14 Days Before Symptom Onset, Have You Had Close Contact With A Person Who Is Under Investigation For COVID-19 While That Person Was Ill? No [email or web address] Information not available 06/21/2021 Have You Been To An Area Known To Be High Risk For COVID-19? No [email or web address] Information not available 06/21/2021 Are You Deaf Or Do You Have Serious Difficulty Hearing? No [email or web address] Information not available 06/21/2021 What Type Of Diet Are You Following? REGULAR [email or web address] Information n ot available 04/25/2020 Which Illicit Or Recreational Drugs Have You Used? Never Information not available 08/27/2016 Have You Processed Blood Or Body Fluids From An Ebola Virus Disease Patient Without Appropriate PPE? No [email or web address] Information not available 06/21/2021 Do You Reside In Or Have You Traveled To An Area Where Ebola Virus Transmission Is Active? No [email or web address] Information not available 06/21/2021 Have There Been Any Changes To Your Family Or Social Situation? No [email or web address] Information no t available 06/21/2021 Hard Of Hearing Or Deaf In One Or Both Ears? No [email or web address] Information not available 08/27/2016 Have You Recently Or Are You Planning To Travel To An Area With Zika Virus? No [email or web address] Information not available 06/21/2021 Legally Blind In One Or Both Eyes? No [email or web address] Information no t available 08/27/2016 Live Alone Or With Others? Alone [email or web address] Information not available 04/25/2020 What Was The Date Of Your Most Recent Tobacco Screening? 02/20/2023 Information not available 02/20/2023 What Is Your Relationship Status? [email or web address] Information not available 08/27/2016 Smoke Alarm In Home Yes [email or web address] Information not available 08/27/2016 Do You Have Smoke And Carbon Monoxide Detectors In Your Home? Yes Information not available 06/21/2021 Are You Passively Exposed To Smoke? No [email or web address] Information no t available 02/20/2021 General Stress Level High [email or web address] Information not available 06/21/2021 Has Tobacco Cessation Counseling Been Provided? Yes [email or web address] Information not available 12/10/2022 On What Date Was Tobacco Cessation Counseling Provided? 02/20/2023 [email or web address] Information not available 02/20/2023 Do You Have Difficulty Walking Or Climbing Stairs? Yes Information not available 06/21/2021 Sex: Male Functional Status Question Answer Note LastModified by Organizat ion Details LastModified Time Do you use any illicit or recreational drugs? No [email or web address] Information not available 06/21/2021 Do you or have you ever used any other forms of tobacco or nicotine? No [email or web address] Information not available 04/24/2021 What is your level of alcohol consumption? Occasional [email or web address] Information not available 08/27/2016 Do you or have you ever used smokeless tobacco? Never used smokeless tobacco [email or web address] Information not available 11/23/2019 Are you currently employed? No [email or web address] Information not available 06/21/2021 Do you have transportation difficulties? No [email or web address] Information not available 06/21/2021 Are you able to walk? YESWOREST [email or web address] Information not available 06/21/2021 Do you have difficulty doing errands alone? No [email or web address] Information not available 06/21/2021 Are you able to care for yourself? Yes [email or web address] Information n ot available 08/27/2016 Do you have difficulty dressing or bathing? No [email or web address] Information not available 06/21/2021 Do you or have you ever used e-cigarettes or vape? Never used electronic cigarettes [email or web address] Information not available 11/23/2019 What is your exercise level? Moderate [email or web address] Information not available 08/27/2016 Mental Status Question Answer Note LastModified by Organizat ion Details LastModified Time Do you feel stressed (tense, restless, nervous, or anxious, or unable to sleep at night)? [id number] [email or web address] Information not available 06/21/2021 Do you have difficulty concentrating, remembering or making decisions? No [email or web address] Information no t available 06/21/2021 Family History Relationship Description Onset Age of this Age Resolved Age Notes LastModified by Organization Details LastModified Time Father No current problems or disability Not available 11/22 14:32:24 Mother No current problems or disability [email or web address] Not available 11/22 14:32:24 Medical History Condition Response Hyperlipidemia Y Immunizations Vaccine Type Date Status Note Provider Nam e and Address Organization Details Recorded Time Td (adult), 2 Lf tetanus toxoid, preservative free, adsorbed 7 completed MERI Crespo - [facility] 06/15/2023 13:25:15 Past Encounters Encounter ID Performer Location Encounter Start Date Encounter Closed Date Diagnosis/Indication Diagnosis SNOMED-CT Code Diagnosis ICD10 Code Diagnosis Note [id number] [facility] [address] [place] [address] 06/22/2014 00:00:00 [id number] [facility] [address] [place] [address] 08/25/2014 00:00:00 [id number] [facility] [address] [place] [address] 11/05/2015 00:00:00 [id number] [facility] [address] [place] [address] 11/23/2007 00:00:00 [id number] [facility] [address] [place] [address] 12/26/2009 00:00:00 [id number] [facility] [address] [place] [address] 02/12/2010 00:00:00 [id number] [facility] [address] [place] [address] 04/16/2010 00:00:00 [id number] [facility] [address] [place] [address] 10/28/2010 00:00:00 [id number] [facility] [address] [place] [address] 02/26/2011 00:00:00 [id number] [facility] [address] [place] [address] 05/14/2011 00:00:00 [id number] [facility] [address] [place] [address] 10/14/2012 00:00:00 [id number] [facility] [address] [place] [address] 10/15/2012 00:00:00 [id number] [facility] [address] [place] [address] 06/15/2013 00:00:00 [id number] [facility] [address] [place] [address] 07/18/2013 00:00:00 [id number] [facility] [address] [place] [address] 08/01/2013 00:00:00 [id number] [facility] [address] [place] [address] 11/11/2013 00:00:00 [id number] [facility] [address] [place] [address] 11/11/2013 00:00:00 [id number] [facility] [address] [place] [address] 01/30/2014 00:00:00 [id number] Caio Clark MD [address] [place] [address] 08/27/2016 14:11:44 08/28/2016 08:34:31 Lower back injury 526852071 S39.82XA Pain in ri ght lower limb 394551373 M79.604 Nausea 772483408 R11.0 [id number] Caio Clark MD [address] [place] [address] 08/29/2016 13:43:30 09/01/2016 08:54:15 Muscle strain 24574337 T14.8 [id number] Caio Clark MD [address] [place] [address] 09/08/2016 16:43:18 09/09/2016 08:13:24 Low back pain 703621688 M54.5 Lumbar radiculopathy 128 903887 M54.16 Pain in ri t lower limb 502895204 M79.088 [id number] Caio Clark MD [address] [address] 09/17/2016 18:06:24 09/18/2016 08:44:39 Lower back injury 549732657 S39.92XS Pain in ri t lower limb 077201158 M79.475 [id number] Caio Clark MD [address] [place] [place] [address] 10/22/2016 15:38:42 10/23/2016 07:52:16 Spasm of back muscles 662289451 M62.830 Lumbar disc lesion 93578 7005 M51.86 [id number] Caio Clark MD [address] [place] [address] 12/12/2016 16:38:49 12/12/2016 17:54:16 Chronic back pain 271321184 M54.17 [id number] Caio Clark MD [address] [place] [address] 12/19/2016 13:52:46 12/19/2016 16:33:07 Chronic back pain 475603192 M54.17 [id number] Caio Clark MD [address] [place] [address] 12/19/2016 16:41:10 12/26/2016 14:18:21 Backache with radiating pain 697459954 M54.9 [id number] Caio Clark MD [address] [place] [address] 01/19/2017 13:40:05 01/19/2017 15:26:00 Chronic back pain 350067211 M54.17 [id number] Caio Clark MD [address] [place] [address] 02/09/2017 13:14:36 02/09/2017 16:34:35 Chronic back pain 812488629 M54.17 [id number] Caio Clark MD [address] [address] 03/09/2017 14:51:25 03/09/2017 15:55:59 Chronic back pain 770160997 M54.17 Renewal of prescription 221776800 Z76.0 [id number] Caio Clark MD [address] [address] 03/18/2017 15:42:08 03/19/2017 08:11:22 Chronic back pain 518963080 M54.17 Lumbar disc lesion 98562 7005 M51.86 [id number] Caio Clark MD [address] [place] [address] 05/18/2017 15:50:31 05/18/2017 18:24:07 Lumbar disc lesion 323230892 M51.86 Chronic back pain 139067 002 M54.17 Posttrauma tic stress disorder 76195767 F43.10 Insomnia 357726200 G47.0 0 Backache w ith radiating pain 742257174 M54.9 [id number] Caio Clark MD [address] [place] [address] 06/23/2017 16:44:07 06/23/2017 19:19:34 Chronic back pain 114988952 M54.17 [id number] Caio Clark MD [address] [place] [address] 07/31/2017 14:44:23 07/31/2017 17:03:04 Backache with radiating pain 597558562 M54.9 Chronic back pain 725816 002 M54.17 Insomnia 770688333 G47.0 0 Posttrauma tic stress disorder 61578645 F43.10 [id number] Caio Clark MD [address] [place] [address] 09/09/2017 16:11:31 09/09/2017 18:30:34 Posttraumatic stress disorder 74364093 F43.10 Lumbar disc lesion 28049 7005 M51.86 Body mass index 30+ - obesity 304787976 Z68.39 Insomnia 745377755 G47.0 0 Chronic back pain 766734 002 M54.17 Backache w ith radiating pain 537183870 M54.9 [id number] Caio Clark MD [address] [place] [address] 12/08/2017 13:46:15 12/08/2017 15:14:00 Insomnia 543950440 G47.00 Posttrauma tic stress disorder 20432322 F43.10 Lumbar disc lesion 40567 7005 M51.86 Chronic back pain 237428 002 M54.17 Anxiety 02889129 F41.9 [id number] Caio Clark MD [address] [place] [address] 02/09/2018 16:14:07 02/09/2018 18:47:50 Chronic back pain 956644307 M54.17 Body mass index 30+ - obesity 652927641 Z68.39 Insomnia 542779218 G47.0 0 Anxiety 28670218 F41.9 [id number] Caio Clark MD [address] [place] [address] 04/21/2018 10:22:25 04/21/2018 12:21:58 Chronic back pain 650848933 M54.17 Anxiety 49504825 F41.9 Posttrauma tic stress disorder 51854905 F43.10 Insomnia 201024283 G47.0 0 Backache w ith radiating pain 821286386 M54.9 [id number] Kaleb Jones MD [place] [address] [place] [address] 06/02/2018 13:27:28 06/02/2018 14:20:02 Posttraumatic stress disorder 38934849 F43.10 Chronic back pain 507192 002 M54.9 Anxiety 59484876 F41.9 Mixed hyperlipidemia 267 458815 E78.2 Radicular pain 83603243 M54.10 [id number] Kaleb Jones MD [place] [address] [place] [address] 11/23/2019 14:24:19 11/23/2019 15:50:30 Chronic back pain 951095947 M54.9 Insomnia 350482396 G47.0 9 Mixed hyperlipidemia 267 945052 E78.2 Anxiety 72629309 F41.9 Posttrauma tic stress disorder 64680023 F43.10 Body mass index 30+ - obesity 101013670 Z68.34 [id number] Kaleb Jones MD [place] [address] [place] [address] 12/30/2019 12:56:42 12/30/2019 14:23:46 Chronic back pain 974798808 M54.9 Insomnia 718690651 G47.0 9 Mixed hyperlipidemia 267 888845 E78.2 Lumbar disc lesion 40722 7005 M51.86 Essential hypertension 96355727 I10 Anxiety 47184820 F41.9 Posttrauma tic stress disorder 32950186 F43.10 [id number] Kaleb Jones MD [place] [address] [place] [address] 02/22/2020 10:41:54 02/22/2020 11:43:25 Chronic back pain 457107163 M54.9 Insomnia 270800466 G47.0 9 Mixed hyperlipidemia 267 863502 E78.2 Lumbar disc lesion 44264 7005 M51.86 Anxiety 15166940 F41.9 Posttrauma tic stress disorder 92014928 F43.10 [id number] Kaleb Jones MD [place] [address] [place] [address] 04/25/2020 12:55:55 04/25/2020 14:59:12 Chronic back pain 770151562 M54.9 Insomnia 504901440 G47.0 9 Mixed hyperlipidemia 267 437165 E78.2 Lumbar disc lesion 41468 7005 M51.86 Posttrauma tic stress disorder 45009019 F43.10 Acute sinusitis 34504040 J01.90 [id number] Kaleb Jones MD [address] [place] [address] 06/21/2020 12:55:14 06/21/2020 13:54:38 Hypertensive disorder 20267300 I10 Chronic back pain 415639 002 M54.9 Insomnia 403555591 G47.0 9 Mixed hyperlipidemia 267 738856 E78.2 Lumbar disc lesion 90578 7005 M51.86 Body mass index 30+ - obesity 638595725 Z68.34 Liver enzy mes outside reference range 085431441 R94.5 Hypothyroidism 57901374 E03.9 Anxiety 01554817 F41.9 Allergic rhinitis 985049 04 J30.9 [id number] Kaleb Jones MD [address] [place] [address] 08/23/2020 13:54:42 08/23/2020 15:56:58 Hypothyroidism 81132939 E03.9 Hypertensive disorder 38 157790 I10 Chronic back pain 419361 002 M54.9 Insomnia 523771328 G47.0 9 Anxiety 92378963 F41.9 Posttrauma tic stress disorder 42934587 F43.10 Essential hypertension 94393906 I10 Numbness of hand 6373246 04 R20.0 Bilateral pain in upper arms 7630332975 3241016 M79.621 numbness and tingling in upper extremitie s/bilatera l hands Carpal brando mariana syndrome 29472791 G56.03 [id number] Kaleb Jones MD [address] [place] [address] 11/09/2020 14:14:43 11/09/2020 15:30:18 Carpal tunnel syndrome 09034667 G56.03 Hypothyroidism 11396412 E03.9 Hypertensive disorder 38 847758 I10 Chronic back pain 201516 002 M54.9 Insomnia 940776238 G47.0 9 Mixed hyperlipidemia 267 228681 E78.2 Lumbar disc lesion 31002 7005 M51.86 Posttrauma tic stress disorder 23056350 F43.10 Anxiety 60338260 F41.9 Essential hypertension 80078423 I10 Snoring 36492770 R06.83 Body mass index 30+ - obesity 096638374 Z68.34 Headache 70009513 R51.9 [id number] Kaleb Jones MD [address] [place] [address] 12/21/2020 13:46:18 12/21/2020 14:20:35 Carpal tunnel syndrome 04489291 G56.03 Hypothyroidism 01982168 E03.9 Hypertensive disorder 38 859408 I10 Chronic back pain 232739 002 M54.9 Insomnia 948308743 G47.0 9 Mixed hyperlipidemia 267 560452 E78.2 Posttrauma tic stress disorder 26450742 F43.10 [id number] Kaleb Jones MD [address] [place] [address] 02/20/2021 13:51:55 02/20/2021 14:53:07 Carpal tunnel syndrome 13266353 G56.03 Hypertensive disorder 38 761589 I10 Chronic back pain 183421 002 M54.9 Insomnia 709524514 G47.0 9 Lumbar disc lesion 88048 7005 M51.86 Posttrauma tic stress disorder 60474121 F43.10 [id number] Kaleb Jones MD [address] [place] [address] 03/13/2021 15:44:23 03/13/2021 16:36:08 Skin lesion 17412557 L98.9 Hypertensive disorder 38 327688 I10 Mixed hyperlipidemia 267 898949 E78.2 Screening for malignant neoplasm of prostate 911979899 Z12.5 Screening for malignant neoplasm of colon 278694163 Z12.11 Posttrauma tic stress disorder 50407946 F43.10 [id number] Kaleb Jones MD [place] [address] [place] [address] 04/24/2021 13:44:18 04/24/2021 14:59:56 Posttraumatic stress disorder 11504615 F43.10 Chronic back pain 218878 002 M54.9 Hypertensive disorder 38 875559 I10 Hypothyroidism 19604836 E03.9 Lumbar disc lesion 11055 7005 M51.86 Insomnia 100446745 G47.0 9 [id number] Kaleb Jones MD [address] [place] [address] 06/21/2021 12:31:47 06/21/2021 13:50:33 Carpal tunnel syndrome 15867592 G56.03 Chronic back pain 018828 002 M54.9 Insomnia 097435803 G47.0 9 Posttrauma tic stress disorder 19899811 F43.10 Anxiety 20820243 F41.9 Body mass index 30+ - obesity 706191605 Z68.34 [id number] Kaleb Jones MD [address] [place] [address] 08/09/2021 11:19:02 08/09/2021 12:44:49 Hypertensive disorder 40143239 I10 Chronic back pain 544205 002 M54.9 Insomnia 277336833 G47.0 9 Posttrauma tic stress disorder 71098168 F43.10 Anxiety 64464614 F41.9 Long-term drug therapy 214018230 Z79.899 Hypothyroidism 92548425 E03.9 Mixed hyperlipidemia 267 651795 E78.2 [id number] Kaleb Jones MD [address] [place] [address] 09/05/2021 16:11:11 09/05/2021 16:45:07 Carpal tunnel syndrome 40486979 G56.03 Hypothyroidism 91925714 E03.9 Hypertensive disorder 38 202216 I10 Chronic back pain 692149 002 M54.9 Insomnia 545677296 G47.0 9 Mixed hyperlipidemia 267 405214 E78.2 Anxiety 44087512 F41.9 Posttrauma tic stress disorder 64074067 F43.10 Body mass index 30+ - obesity 673074487 Z68.34 Lumbar disc lesion 51204 7005 M51.86 Essential hypertension 28783471 I10 [id number] Kaleb Jones MD [address] [place] [address] 01/30/2022 15:48:15 01/30/2022 17:02:20 Hypothyroidism 70708481 E03.9 Hypertensive disorder 38 746756 I10 Chronic back pain 195553 002 M54.9 Posttrauma tic stress disorder 64787810 F43.10 Anxiety 84403758 F41.9 Insomnia 149515316 G47.0 9 Lumbar disc lesion 72331 7005 M51.86 [id number] Kaleb Jones MD [address] [place] [address] 12/10/2022 13:42:32 12/10/2022 15:24:57 Chronic back pain 451785098 M54.9 Pain in lower limb 58639 006 M79.604 Low back pain 340192625 M54.50 Radiology result abnormal 731250034 R93.89 Pain in ri ght lower limb 040576593 M79.604 workers comp Posttrauma tic stress disorder 52066621 F43.10 [id number] Kaleb Jones MD [address] [place] [address] 02/20/2023 13:44:53 02/20/2023 14:46:19 Chronic back pain 900362248 M54.9 follow back up with Dr. Clark Anxiety 63031074 F41.9 stable Hypertensive disorder 38 598821 I10 reviewed with patient today, increasing pain, follow back up with Dr. Clark Posttrauma tic stress disorder 10501960 F43.10 Body mass index 30+ - obesity 940375189 Z68.34 BMI 34.7 Obesity 661270297 E66.9 Hypothyroidism 07206138 E03.9 Mixed hyperlipidemia 267 267511 E78.2 Hemangioma 970820484 D18 .00 L5 [id number] Kaleb Jones MD [address] [place] [address] 05/06/2023 14:09:22 05/06/2023 15:22:43 Chronic back pain 592521720 M54.9 Hypertensive disorder 38 291834 I10 stable today Hypothyroidism 91700096 E03.9 no recent problems Posttrauma tic stress disorder 31073287 F43.10 Anxiety 11084562 F41.9 [id number] Eric Arroyo APRN [address] [address] 06/15/2023 13:10:20 06/15/2023 14:51:29 Acute maxillary sinusitis 62383986 J01.00 if worsening or no improvemen t return Acute bronchitis 0183104 2 J20.9 Health Concerns Section Related Observation LastModified by Organization Detai ls LastModified Time None Recorded Concern Status LastModified by Organization Details LastModified Time None Recorded Advance Directives Directive None Recorded Payers Insurance Date Sequence Insurance Name Policy Number Policy Sorenson Covered Member ID Sorenson Member ID Guarantor Name 09/02/2016 1 *SELF PAY* Woody Armas 12/21/2020 1 [place] [id number] Jared Armas [id number] Jared Armas 09/02/2016 [facility] PHYSICAL THERAPY [id number] [facility] [employer] Jared Armas 12/19/2016 [facility] [id number] [facility] [employer] Jared Armas 06/15/2023 1 [place]IC[place]AC[place]/A DVANTAGE - HMO) [id number] Jared Armas [id number] Jared Armas Notes Date Note Type Note Provider Name and Address Organization Details Recorded Time 2 text/htm l Musculoskeletal PainReported bypatient.Location:chronic back pain Quality:varies Severity:same Duration:present for >12 months Timing:chronic with intermittent worsening Context:prior back problems; used medication for back pain; had evaluations by back specialist; previous MRI Alleviating factors:rest; relieved by changing position Aggravating factors:movement/positioning ; bending over; twisting Associated Symptoms:no fever;weak limbs; neuropathy ADL (Activities of Daily Living)improve with medication anxiety, back pain, chronic pain, insomnia, snoring, fatigue, restlessness, unable to sleep, early headaches, posttraumatic stress disorder, hyperlipidemia, pt states he has not been sleeping, very restless, post traumatic stress keeps him awake, back pain causes problems sitting or riding in vehicle for long distances, difficulty completing tasks. Patient with increasing stress, increasing anxiety. Patient states he has a difficult time getting out of bed and needs a lift chair to help get up and down. Back pain is worsening, having a difficult time stooping, bending or lying in a supine position. Lift chair recliner would benefit the patient with tasks that he needs to complete, getting up and down out of chair. He does have a history of insomnia, help him to sleep and rest better. He has shortness of breath especially with exertion and lying down. Headaches continue, increased anxiety Kaleb Jones MD [address], [place], [address], [place] - [facility] 01/31/2022 14:27:18 3 text/htm l right leg pain, patient presents with pain from right hip radiating to right lower legLow back pain continues, difficulty standing and walking for long distanceanxiety, reviewed depression screening and medications today Kaleb Jones MD [address], [place], [address], [place] [facility] 12/10/2022 15:15:13 3 text/htm l right leg pain, back pain continues, review MRI results todayLow back pain continuesanxietyreviewed blood pressure Kaleb Jones MD [address], [place], [address], [facility] - [facility] 02/23/2023 12:13:05 3 text/htm l patient presents for follow up back pain, increasing paindifficulty sleepinganxiety follow uphypertension follow uphypothyroidism follow uppatient verbalizes Post Traumatic Stress Disorder with anxiety increasing recently Kaleb Jones MD [address], [place], [address], [place] - [facility] 05/07/2023 08:44:19 3 text/htm hung Coleman is a 47 year old male who presents to the office today with concerns ofsore throat, head and chest congestion, cough, diarrhea, coughing and blowing out thick dark yellow drainage and seems to be worsening instead of improving. Eric Arroyo, YONY [address], [place], [address], [facility] - [facility] 06/15/2023 14:57:25
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
== END 2025-03-22 23:59 | disposition home or self-care (01) ==
LOC: LAB.DROPOF 03-27 09:38
PROVIDERS: PCP Family Medicine; Visit Provider Family Medicine
DX: Z12.5 Encounter for screening for malignant neoplasm of prostate (principal); I10 Essential (primary) hypertension; E66.01 Morbid (severe) obesity due to excess calories; Z68.35 Body mass index [BMI] 35.0-35.9, adult
CPT/HCPCS: 80061; 85025; G0103

== ENCOUNTER 2025-04-21 14:20 | Outpatient (CLI) | payer MEDICARE, SELFPAY ==
[2025-04-21 20:00] LABS: Alanine Aminotransferase 42 U/L (12-78); Albumin Level 4.3 g/dl (3.5-5.0); Albumin/Globulin Ratio 1.7 (1.1-1.8); Alkaline Phosphatase 85 U/L (38-126); Anion Gap 11.3 mEq/L (5-15); Aspartate Amino Transferase 41 U/L (17-59); Bilirubin,Total 0.3 mg/dl (0.2-1.3); Blood Urea Nitrogen 12 mg/dl (9-20); Calcium 9.1 mg/dl (8.4-10.2); Carbon Dioxide 25 mmol/L (22.0-30.0); Chloride 107 mmol/L (98-107); Creatinine,Serum 0.70 mg/dl (0.66-1.25); Estimated Glomerular Filt Rate 119 ml/min (>60); GFR (African American) 144 ML/MIN (>60); Globulin 2.5 g/dL (1.3-3.2); Glucose 104 mg/dl (74-100); Potassium 4.3 mmoL/L (3.5-5.1); Sodium 139 mmol/L (136-145); Total Protein,Serum 6.8 g/dl (6.3-8.2)
--- OUTSIDE RECORDS SUMMARY | 2025-04-22 09:54 | XMS_ITS | Clinical Summary ---
Author Organization [facility] Address [address] [place] [address] Phone Care Team Providers Care Surveillance Analyst Name Role Phone Nnamdi QUINONES, Caio Unavailable [phone] Conditions or Problems Problem Name Problem Code Onset Date Status Entry Date Provider Comment Standard Description Annotate LUMBAR RADICULOPATH Y 930581212 (SNOMED CT) 03/22 Active 03/22 Caio Coto MD Lumbar radiculopathy LUMBAR SPONDYLOLYSI S 572115960 (SNOMED CT) 03/22 Active 03/22 Caio Coto MD Spondylolysis HIGH RISK MEDICATION 765032975 (SNOMED CT) 11/14 Active 11/14 Faiza Shelby MA Drug therapy SCIATICA 82300352 (SNOMED CT) 10/29 Active 10/29 Caio Coto MD Sciatica LUMBAR DISC DISPLACEMENT 00291571 (SNOMED CT) 10/31 Active 10/31 Kavita Shelby Displacement of lumbar intervertebral disc without myelopathy DDD LUMBAR 16930686 (SNOMED CT) Active Rivera Schulz Degeneration of lumbar intervertebral disc LUMBAR RADICULITIS 04600768 (SNOMED CT) 11/01 Active 11/01 Caio Coto MD Radiculitis SPRAIN OF LIGAMENTS OF LUMBAR SPINE, SEQUELA S33.5xxS (ICD-10-CM ) 03/16 Active 03/16 Fuad Dominique MA Sprain of ligaments of lumbar spine, sequela OVERWEIGHT 984133825 (SNOMED CT) 03/16 Active 03/16 Fuad Dominique MA Overweight Medications Medication Instructions Start Date Stop Date Generic Name NDC Provider HYDROCODONE-ACETA MINOPHEN 5-325 MG TABS Take 1 tablet by mouth three times a day 09/23 hydrocodone-aceta minophen 06571262626 Caio Coto MD HYDROCODONE-ACETA MINOPHEN 5-325 MG TABS 1 tablet by mouth three times a day 09/23 hydrocodone-aceta minophen 34369689063 Caio Coto MD HYDROCODONE-ACETA MINOPHEN 5-325 MG TABS 1 tablet by mouth three times a day hydrocodone-aceta minophen 39278149092 Caio Coto MD HYDROCODONE-ACETA MINOPHEN 5-325 MG TABS Take 1 tablet by mouth three times a day hydrocodone-aceta minophen 56788880438 Caio Coto MD HYDROCODONE-ACETA MINOPHEN 5-325 MG TABS 1 tablet by mouth three times a day 09/21 hydrocodone-aceta minophen 80466398226 Caio Coto MD HYDROCODONE-ACETA MINOPHEN 5-325 MG TABS Take 1 tablet by mouth three times a day 09/21 hydrocodone-aceta minophen 19016092384 Caio Coto MD GABAPENTIN 300 MG CAPS Take 1 capsule by mouth three times a day 09/21 gabapentin 79664235602 Caio Coto MD GABAPENTIN 300 MG CAPS Take 1 capsule by mouth as directed take 1 tab twice a day for 7 days, take tab once a day for 7 days, take 1 tab thursday, one tab thursday, 1 tab thursday, then stop. gabapentin 43312915163 Caio Coto MD HYDROCODONE-ACETA MINOPHEN 5-325 MG TABS 1 tablet by mouth three times a day 09/23 hydrocodone-aceta minophen 91051686730 Caio Coto MD HYDROCODONE-ACETA MINOPHEN 5-325 MG TABS Take 1 tablet by mouth three times a day 09/23 hydrocodone-aceta minophen 57940944173 Caio Coto MD ZANAFLEX 4 MG TABS Take 1 tablet by mouth once a day tizanidine 20428582263 Caio Coto MD NEXIUM 40 MG CPDR Take 1 capsule by mouth once a day esomeprazole magnesium 28184638774 Caio Coto MD GABAPENTIN 300 MG CAPS Take 1 capsule by mouth three times a day 09/21 gabapentin 80454684757 Caio Coto MD HYDROCODONE-ACETA MINOPHEN 5-325 MG TABS 1 by mouth four times a day 05/20 hydrocodone-aceta minophen 42913958825 Faiza Shelby MA HYDROCODONE-ACETA MINOPHEN 5-325 MG TABS 1 by mouth four times a day 05/20 hydrocodone-aceta minophen 87754450898 Faiza Shelby MA HYDROCODONE-ACETA MINOPHEN 5-325 MG TABS 1 tablet by mouth three times a day 09/21 hydrocodone-aceta minophen 55883879150 Caio Coto MD HYDROCODONE-ACETA MINOPHEN 5-325 MG TABS Take 1 tablet by mouth three times a day 09/21 hydrocodone-aceta minophen 38073035837 Caio Coto MD NAPROXEN 500 MG TABS Take 1 tablet by mouth twice a day 09/21 naproxen 99686238123 Caio Coto MD NORCO 7.5-325 MG ORAL TABLET 1 by mouth three times a day NORCO 7.5-325 MG ORAL TABLET Faiza Shelby MA HYDROCODONE-ACETA MINOPHEN 5-325 MG TABS 1 by mouth four times a day 05/20 hydrocodone-aceta minophen 91068599857 Faiza Shelby MA AMITRIPTYLINE HCL 50 MG TABS Non-Martin amitriptyline 27839448762 Rivera Schulz LEXAPRO 20 MG TABS Non-[facility] escitalopram oxalate 77546314613 Christopher Schulz ZANAFLEX 4 MG TABS 1 by mouth once a day 09/21 tizanidine 87225028564 Faiza Shelby MA AMBIEN 10 MG TABS -[facility] zolpidem 33287563677 Rivera Schulz CYCLOBENZAPRINE HCL 10 MG TABS -[place] cyclobenzaprine 70249350572 Rivera Schulz GABAPENTIN 300 MG CAPS 1 by mouth three times a day 30 gabapentin 86855739198 Faiza Shelby MA SEROQUEL 100 MG TABS -[place] quetiapine 32909924961 Rivera Schulz EFFEXOR XR 150 MG VT10A-XZU -[place] venlafaxine 09694295224 Rivera Schulz HYDROCODONE-ACETA MINOPHEN 5-325 MG TABS 1 by mouth four times a day 830 hydrocodone-aceta minophen 46352269503 Faiza Shelby MA NORCO 7.5-325 MG ORAL TABLET 1 by mouth three times a day NORCO 7.5-325 MG ORAL TABLET Faiza Shelby MA NORCO 7.5-325 MG ORAL TABLET -[place] NORCO 7.5-325 MG ORAL TABLET Rivera Schulz NAPROXEN 500 MG TABS 1 by mouth twice a day 8 naproxen 92191098896 Rivera Schulz HYDROCODONE-ACETA MINOPHEN 5-325 MG TABS 1 po qid, ok to fill 04/24/21 8/30 HYDROCODONE-ACETA MINOPHEN 42935506075 Caio Coto MD HYDROCODONE-ACETA MINOPHEN 5-325 MG TABS 1 po qid, ok to fill 03/25/21 8/30 HYDROCODONE-ACETA MINOPHEN 32366623812 Caio Coto MD HYDROCODONE-ACETA MINOPHEN 5-325 MG TABS 1 po qid, ok to fill 02/23/21/ HYDROCODONE-ACETA MINOPHEN 77629881634 Caio Coto MD HYDROCODONE-ACETA MINOPHEN 5-325 MG TABS 1 po qid, ok to fill 01/24/21 7 HYDROCODONE-ACETA MINOPHEN 97140766117 Caio Coto MD ZANAFLEX 4 MG TABS 1 po qd 8/30 TIZANIDINE HCL 84293739451 Caio Coto MD HYDROCODONE-ACETA MINOPHEN 5-325 MG TABS 1 po qid 11/24/20 503 HYDROCODONE-ACETA MINOPHEN 63153457672 Caio Coto MD GABAPENTIN 300 MG CAPS 1 po tid 8/30 GABAPENTIN 57746455864 Caio Coto MD HYDROCODONE-ACETA MINOPHEN 5-325 MG TABS 1 po qid, ok to fill 12/25/20 5/03 HYDROCODONE-ACETA MINOPHEN 24650041597 Caio Coto MD HYDROCODONE-ACETA MINOPHEN 5-325 MG TABS 1 po qid 11/25/20 3/03 HYDROCODONE-ACETA MINOPHEN 16679238240 Caoi Coto MD GABAPENTIN 600 MG TABS 1 po tid 11/19 GABAPENTIN 18832167960 Caio Coto MD NORCO 7.5-325 MG ORAL TABLET 1 po tid fill on 10/26/20 8/30 HYDROCODONE-ACETA MINOPHEN 04258159236 Caio Coto MD NORCO 7.5-325 MG ORAL TABLET 1 po tid fill on 09/26/20 8/30 HYDROCODONE-ACETA MINOPHEN 13913456130 Caio Coto MD NORCO 7.5-325 MG ORAL TABLET 1 po tid fill on 08/27/20 1/04 HYDROCODONE-ACETA MINOPHEN 49665072377 Caio Coto MD NORCO 7.5-325 MG ORAL TABLET 1 po tid fill on 07/28/200 09/24 HYDROCODONE-ACETA MINOPHEN 99420573437 Caio Coto MD NORCO 7.5-325 MG ORAL TABLET 1 po tid fill on 08/28/2009/26 HYDROCODONE-ACETA MINOPHEN 37048438664 Caio Coto MD NORCO 7.5-325 MG ORAL TABLET 1 po tid fill on 07/29/2009/26 HYDROCODONE-ACETA MINOPHEN 22440479717 Caio Coto MD ZANAFLEX 4 MG TABS 1 po tid 503 TIZANIDINE HCL 70720771507 Caio Coto MD NAPROXEN 500 MG TABS 1 po bid 05/20 NAPROXEN 76598172101 Caio Coto MD NORCO 7.5-325 MG ORAL TABLET 1 po tid fill on 06/29/2009/22 HYDROCODONE-ACETA MINOPHEN 54404077592 Caio Coto MD NORCO 7.5-325 MG ORAL TABLET 1 po tid fill on 05/30/2009/22 HYDROCODONE-ACETA MINOPHEN 04269714635 Caio Coto MD ZANAFLEX 4 MG TABS 1 po tid 9 TIZANIDINE HCL 71215691018 Caio Coto MD NORCO 7.5-325 MG ORAL TABLET 1 po tid fill on 04/30/20 9 HYDROCODONE-ACETA MINOPHEN 66313749914 Caio Coto MD NORCO 7.5-325 MG ORAL TABLET 1 po tid fill on 03/31/20 9 HYDROCODONE-ACETA MINOPHEN 14825698689 Caio Coto MD NORCO 7.5-325 MG ORAL TABLET 1 po tid fill on 02/22/2006 HYDROCODONE-ACETA MINOPHEN 19065377669 Caio Coto MD NORCO 7.5-325 MG ORAL TABLET 1 po tid fill on 01/23/200 706 HYDROCODONE-ACETA MINOPHEN 82002477762 Caio Coto MD ZANAFLEX 4 MG TABS 1 po tid 0 706 TIZANIDINE HCL 17252736200 Caio Coto MD NAPROXEN 500 MG TABS 1 po bid 0 05/23 NAPROXEN 21215083263 Caio Coto MD NORCO 7.5-325 MG ORAL TABLET 1 po tid fill on 12/23/190 504 HYDROCODONE-ACETA MINOPHEN 28887177564 Caio Coto MD NORCO 7.5-325 MG ORAL TABLET 1 po tid fill on 11/23/190 504 HYDROCODONE-ACETA MINOPHEN 93967225394 Caio Coto MD NORCO 7.5-325 MG ORAL TABLET Non-[place] 03/07 HYDROCODONE-ACETA MINOPHEN 25691719320 Rivera Schulz SEROQUEL TABS -[place] 03/07 QUETIAPINE FUMARATE TABS 48817574674 Rivera Schulz AMBIEN 10 MG TABS [facility] 03/07 ZOLPIDEM TARTRATE 59508116358 Rivera Schulz SEROQUEL 100 MG TABS [facility] 0 8/ QUETIAPINE FUMARATE 01103620676 Dominikophkyle Schulz AMBIEN 10 MG TABS [facility] 0 8/30 ZOLPIDEM TARTRATE 69583086971 Rivera Schulz NORCO 7.5-325 MG ORAL TABLET [facility] 0 8/30 HYDROCODONE-ACETA MINOPHEN 25383239659 Rivera Schulz LEXAPRO 20 MG TABS [facility] 0 8/30 ESCITALOPRAM OXALATE 17730897587 Rivera Schulz AMITRIPTYLINE HCL 50 MG TABS [facility] AMITRIPTYLINE HCL 95496755503 Rivera Schulz EFFEXOR XR 150 MG PM79V-OUT [facility] 05/20 VENLAFAXINE HCL 76527884709 Rivera Schulz CYCLOBENZAPRINE HCL 10 MG TABS -[place] 05/20 CYCLOBENZAPRINE HCL 23886983624 Rivera Schulz NORCO 7.5-325 MG ORAL TABLET [facility] 03/07 HYDROCODONE-ACETA MINOPHEN 47722385405 Fuad Dominique MA SEROQUEL TABS [facility] 03/07 QUETIAPINE FUMARATE TABS 60101268743 Fuad Dominique MA AMBIEN 10 MG TABS [facility] 03/07 ZOLPIDEM TARTRATE 74368099817 Fuad Dominique MA Medications Administered No information available. Allergies, Adverse Reactions, Alerts Observed no known allergies at Results No information available. Plan of Care Type Date Detail Pending order MAGGIE x 2 injectio ns & follow up with ordering MD Pending order Breg [place] LO 627/642 Pending order Drug Abuse Panel - Pain Management Profile 13 Drug Urine Pending order Breg Horizon 627 LSO Pending order MRI Lumbar witho ut Contrast Pending order MRI Lumbar witho ut Contrast Pending order Drug Abuse Panel - Pain Management Profile 13 Drug Urine Pending order Orthotic Device - Other Pending order X-Ray Lumbar AP & Lateral Pending order X-Ray Thoracic A P & Lateral Pending order Orthotic Device - Other Pending order MRI Lumbar Pending order EMG Bilateral Lo wers Pending order Functional Marydel ity Evaluation Patient education LUMBAR%20DISC% 20HERNIATION Patient education DEGENERATIVE%2 0DISC%20DISEASE Procedures Code Procedure Name Date Entry Date [id number] Flu Shot Declined 2 SCT-[id number] Flu Shot Declined 8 78450 MRI Lumbar Spine 72416 EMG w/ NCS, Complete, 1 Extremity CPT-988 64 1623/12/11 06475 Nerve Conduction Study (3-4 studies) CPT- 00062 Vital Signs Date Name Value Unit Description Height 72 [in_us] height E&M Body Temperature 98.3 [degF] temperat ure E&M BMI (Body Mass Index) 26.34 kg/m2 Bod y Mass Index (Ratio) BP Diastolic 84 mm[Hg] blood pressu re, diastolic BP Systolic 126 mm[Hg] blood pressur e, systolic Weight Measured 194.2 [lb_av] weight E& M Weight Measured 194.2 [lb_av] weight E& M Heart Rate 82 /min pulse rate Immunizations No information available. Advance Directives No information available.
--- OUTSIDE RECORDS SUMMARY | 2025-04-22 09:55 | XMS_ITS | Clinical Summary ---
Author Organization [facility] [address] [facility] Address [address] [place] [address] Care Team Providers Care Hemp Fiber Taker Off Name Role Phone Caio Clark MD Primary Care Provider [phone] Allergies No known active allergies Medications No [...] WORKERS' COMP GENERIC WORKERS' COMP Care Teams Hemp Fiber Taker Off Relationship Specialty Start Date End Date Caio Clark MD PCP - General Family Medicine 07/16/13
--- OUTSIDE RECORDS SUMMARY | 2025-04-22 09:55 | XMS_ITS | Clinical Summary ---
Author Organization [facility] Address [address] [id number] Care Team Providers Care Box Printing Machine Operator Name Role Phone Pcp, No Primary Care Provider Unavailabl e Allergies No known active allergies Medications albuterol 108 (90 Base) MCG/ACT inhaler 2 puffs. 02/29/2024 Act luh lisinopril 20 MG tablet 1 tablet (20 mg). 03/30/2024 Active sildenafil (Viagra) 100 MG tablet 1 tablet (100 mg). 01/27/2024 Active HYDROcodone-acet aminophen (Mena) 7.5-325 MG tablet Take 1 tablet (7.5 [...] 2019 Sigmoidoscopy 2019 [facility]-Colorectal Cancer Screening 2019 [id number] Vaccine (1 - 20 24-25 season) 2024 [...] this topic Insurance [employer] Care Teams Box Printing Machine Operator Relationship Specialty Start Date End Date Pcp, [facility] [place] [address] PCP - General Family Medicine 05/22/24
[2025-04-23 07:03] LABS: Testosterone,Total 261 ng/dL (264-916)
== END 2025-04-21 23:59 | disposition home or self-care (01) ==
LOC: LAB.DROPOF 04-22 09:53
PROVIDERS: PCP Family Medicine; Visit Provider Family Medicine
DX: E66.01 Morbid (severe) obesity due to excess calories (principal); E34.9 Endocrine disorder, unspecified; Z68.35 Body mass index [BMI] 35.0-35.9, adult
CPT/HCPCS: 80053; 84403

== ENCOUNTER 2025-08-30 13:42 | Outpatient (CLI) | payer MEDICARE, SELFPAY ==
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
== END 2025-08-30 23:59 | disposition home or self-care (01) ==
LOC: RAD 13:42
PROVIDERS: PCP Family Medicine; Visit Provider Family Medicine
DX: M51.16 Intervertebral disc disorders with radiculopathy, lumbar region (principal); M51.17 Intervertebral disc disorders with radiculopathy, lumbosacral region; M99.73 Connective tissue and disc stenosis of intervertebral foramina of lumbar region
CPT/HCPCS: 72148